=== PATIENT | male | born 1945 | race Caucasian/White ===

== ENCOUNTER 2019-05-10 12:03 | Inpatient (IN) | payer MEDICARE, OTHER ==
[2019-05-10] MEDS ORDERED: METHYLPREDNISOLONE INJ 125 MG/2 ML SDV ONE (12:14)
[2019-05-10] MEDS ORDERED: METHYLPREDNISOLONE INJ 125 MG/2 ML SDV IV ONE (12:15)
[2019-05-10] MEDS ORDERED: IPRATROPIUM/ALBUTEROL 0.5-2.5 MG/3 ML AMPUL NEB SCH (12:15)
--- NOTE | 2019-05-10 12:18 | ER Document Report ---
ED Medical Screen (RME) - General Chief Complaint: Shortness Of Breath Stated Complaint: SHORT OF BREATH Time Seen by Provider: 05/10/19 12:11 Mode of Arrival: Wheelchair Information source: Patient Notes: 73-year-old male presents to ED for shortness of breath unable to get his breath. He states his been since last night his states is been a lot longer than that. He does smoke more than a pack a day. Patient is very short of breath with sats in the 70s and 80s we did get it up to 82 on 2 L when we moved him to the bed 3 we did get up to 92. I have started labs x-rays treatments steroids and informed Dr. Mantilla the patient needed to be seen promptly. I have greeted and performed a rapid initial assessment of this patient. A comprehensive ED assessment and evaluation of the patient, analysis of test results and completion of medical decision making process will be conducted by an additional ED providers. Dictation of this chart was performed using voice recognition software; therefore, there may be some unintended grammatical errors. TRAVEL OUTSIDE OF THE [place] IN LAST 30 DAYS: No - Related Data Allergies/Adverse Reactions: No Known Allergies Allergy (Verified 05/10/19 12:05)
--- NOTE | 2019-05-10 12:33 | ER Document Report ---
ED Respiratory Problem - General Chief Complaint: Shortness Of Breath Stated Complaint: SHORT OF BREATH Time Seen by Provider: 05/10/19 12:11 Mode of Arrival: Wheelchair Information source: Patient, Relative TRAVEL OUTSIDE OF THE [place] IN LAST 30 DAYS: No - HPI Patient complains to provider of: COPD, Short of breath - pt. with h/o COPD [place] continues to smoke with onset of SOB last night with exacerbation this am. - Related Data Allergies/Adverse Reactions: No Known Allergies Allergy (Verified 05/10/19 12:05) Past Medical History - General Information source: Relative - Social History Smoking Status: Current Every Day Smoker Cigarette use (# per day): Yes Chew tobacco use (# tins/day): No Smoking Education Provided: Yes Family History: None Review of Systems - Review of Systems Constitutional: No symptoms reported EENT: No symptoms reported Cardiovascular: No symptoms reported Respiratory: See HPI, Short of breath Gastrointestinal: No symptoms reported Musculoskeletal: No symptoms reported Neurological/Psychological: No symptoms reported -: Yes All other systems reviewed and negative Physical Exam - Vital signs Vitals: Temp Pulse Resp BP 98.8 F 109 H 29 H 130/79 H 05/10/19 12:23 05/10/19 12:23 05/10/19 12:23 05/10/19 12:23 - General General appearance: Alert In distress: Moderate - HEENT Mucous membranes: Normal Pharynx: Normal Neck: Normal - Respiratory Respiratory status: Respiratory distress - moderate Chest status: Nontender Breath sounds: Decreased air movement, Wheezing - bilateral end-expiratory wheezes audible - Cardiovascular Rhythm: Regular Heart sounds: Normal auscultation Murmur: No - Extremities General upper extremity: Normal inspection, Normal strength - Neurological Neuro grossly intact: Yes Cognition: Normal Orientation: AAOx4 Course - Re-evaluation Re-evalutation: 05/10/19 15:32 Pt is breathing better after duonebs, lasix and steroids -- I will call the hospitalist for admission. - Vital Signs Vital signs: Temp Pulse Resp BP Pulse Ox 98.8 F 109 H 19 130/79 H 94 05/10/19 12:23 05/10/19 12:23 05/10/19 13:20 05/10/19 12:23 05/10/19 13:20 - Laboratory Result Diagrams: 05/10/19 12:15 05/10/19 12:15 Laboratory results interpreted by me: 05/10/19 05/10/19 05/10/19 12:15 12:15 12:15 WBC 13.7 H RDW 14.8 H Seg Neuts % (Manual) 86 H Lymphocytes % (Manual) 4 L Abs Neuts (Manual) 11.8 H Absolute Eos (Manual) 0.7 H Carbonic Acid ABG pH ABG pCO2 ABG pO2 ABG HCO3 ABG Total CO2 ABG O2 Saturation Potassium 5.6 H Chloride 96 L Carbon Dioxide 39 H BUN 24 H Glucose 178 H NT-Pro-B Natriuret Pep 3250 H Lipase 20.0 L 05/10/19 12:42 WBC RDW Seg Neuts % (Manual) Lymphocytes % (Manual) Abs Neuts (Manual) Absolute Eos (Manual) Carbonic Acid 2.34 H ABG pH 7.31 L ABG pCO2 77.9 H* ABG pO2 61.6 L ABG HCO3 38.3 H ABG Total CO2 40.7 H ABG O2 Saturation 88.3 L Potassium Chloride Carbon Dioxide BUN Glucose NT-Pro-B Natriuret Pep Lipase - Diagnostic Test Radiology reviewed: Reports reviewed - ?CHF - EKG Interpretation by Me EKG shows normal: Sinus rhythm Rate: Normal Rhythm: NSR - nsr without acute change Critical Care Note - Critical Care Note Total time excluding time spent on procedures (mins): 30 Discharge - Discharge Clinical Impression: COPD exacerbation CHF (congestive heart failure) Qualifiers: Heart failure type: unspecified Heart failure chronicity: unspecified Qualified Code(s): I50.9 - Heart failure, unspecified Condition: Stable Disposition: ADMITTED OBSERVATION Admitting Provider: Mariposa (Hospitalist) Unit Admitted: [facility]
[2019-05-10 12:40] LABS: PROTHROMBIN TIME 14.2 SEC (11.4-15.4)
[2019-05-10 12:41] LABS: PARTIAL THROMBOPLASTIN TIME 32.9 SEC (23.5-35.8)
[2019-05-10 12:56] LABS: ALANINE AMINOTRANSFERASE 42 U/L (21-72); ALBUMIN 3.6 g/dL (3.5-5.0); ALKALINE PHOSPHATASE 122 U/L (38-126); ASPARTATE AMINO TRANSFERASE 31 U/L (17-59); BILIRUBIN,DIRECT 0.4 mg/dL (0.0-0.4); BILIRUBIN,TOTAL 0.6 mg/dL (0.2-1.3); BLOOD UREA NITROGEN 24 mg/dL (7-20); CALCIUM 8.8 mg/dL (8.4-10.2); CHLORIDE 96 mmol/L (98-107); CREATINE KINASE 71 U/L (55-170); GLUCOSE 178 mg/dL (75-110); POTASSIUM 5.6 mmol/L (3.6-5.0); TOTAL PROTEIN 6.6 g/dL (6.3-8.2)
--- NOTE | 2019-05-10 12:57 | RADIOLOGY REPORT (SQ) ---
EXAM DESCRIPTION: CHEST SINGLE VIEW COMPLETED DATE/TIME: 05/10/2019 12:28 pm REASON FOR STUDY: #1 SYNCOPE COMPARISON: None. EXAM PARAMETERS: NUMBER OF VIEWS: One view. TECHNIQUE: Single frontal radiographic view of the chest acquired. RADIATION DOSE: NA LIMITATIONS: None. FINDINGS: LUNGS AND PLEURA: Few Maicol lines are present at both lung bases, question mild fluid ove rload or congestive failure. No pulmonary alveolar edema or dense consolidation worrisome for pneumonia. No pleural effusions or pneumothorax. MEDIASTINUM AND HILAR STRUCTURES: No masses. Contour normal. HEART AND VASCULAR STRUCTURES: Heart normal in size. Normal vasculature. BONES: No acute findings. HARDWARE: None in the chest. OTHER: No other significant finding. IMPRESSION: Few Maicol lines from fluid overload or congestive failure TECHNICAL DOCUMENTATION: JOB ID: [id number] [employer]- All Rights Reserved Reading location - IP/workstation name: [email or web address]
[2019-05-10 12:59] LABS: ARTERIAL BLOOD H2CO3 2.34 mmol/L (1.05-1.35); ARTERIAL BLOOD HCO3 38.3 mmol/L (20-24); ARTERIAL BLOOD O2 SATURATION 88.3 % (94-98); ARTERIAL BLOOD PH 7.31 (7.35-7.45); ARTERIAL BLOOD PO2 61.6 mmHg (80-100); ARTERIAL BLOOD TOTAL CO2 40.7 mmol/L (23-27)
[2019-05-10 13:02] LABS: ANION GAP 7 (5-19)
[2019-05-10 13:07] LABS: CARBON DIOXIDE 39 mmol/L (22-30); CREATINE KINASE MB 3.35 ng/mL (<4.55); HEMATOCRIT 43.6 % (37.9-51.0); HEMOGLOBIN 14.3 g/dL (13.5-17.0); MEAN CORPUSCULAR HEMOGLOBIN 31.2 pg (27.0-33.4); MEAN CORPUSCULAR HGB CONC 32.9 g/dL (32.0-36.0); MEAN CORPUSCULAR VOLUME 95 fl (80-97); PLATELET COUNT 450 10^3/uL (150-450); RED CELL DISTRIBUTION WIDTH 14.8 % (11.5-14.0); WHITE BLOOD COUNT 13.7 10^3/uL (4.0-10.5)
[2019-05-10 13:11] LABS: TROPONIN I 0.255 ng/mL
[2019-05-10 13:11] LABS: ARTERIAL BLOOD FIO2 2L; ARTERIAL BLOOD PCO2 77.9 mmHg (35-45)
[2019-05-10 13:13] LABS: ABSOLUTE LYMPHOCYTES# (MANUAL) 0.5 10^3/uL (0.5-4.7); ABSOLUTE MONOCYTES # (MANUAL) 0.7 10^3/uL (0.1-1.4); BASOPHILS % (MANUAL) 0 % (0-2); EOSINOPHILS % (MANUAL) 5 % (0-6); LYMPHOCYTES % (MANUAL) 4 % (13-45); MONOCYTES % (MANUAL) 5 % (3-13); SEGMENTED NEUTROPHILS % (MAN) 86 % (42-78); TOTAL CELLS COUNTED 100
[2019-05-10 13:14] LABS: ANISOCYTOSIS SLIGHT; STOMATOCYTES SLIGHT; TOXIC VACUOLATION PRESENT
[2019-05-10 13:15] LABS: PLATELET CLUMPS PRESENT; PLATELET COMMENT ADEQUATE
[2019-05-10] MEDS ORDERED: FUROSEMIDE INJ/PF 40 MG/4 ML SDV IV ONE (15:20)
--- NOTE | 2019-05-10 17:56 | PDOC H&P ---
History of Present Illness Admission Date/PCP: 05/10/19 15:52 Patient complains of: SOB History of Present Illness: VERONIKA CRABTREE is a 73 year old male who denies significant past medical history but does not see a regular physician who is presenting with worsening shortness of breath and cough. is in the bedside. Patient is a chronic heavy smoker. He was not previously diagnosed with COPD but she says that they have been suspecting COPD as he has been having shortness of breath for the past 8 months and has occasional wheezing. He says that he has been having increasingly productive cough for the past week with whitish sputum. He started developing worsening shortness of breath and fast 45 days. He says that his checked his O2 saturation this morning it was down to 49%. In the ER, patient was noted to be hypoxic in the 70s. He was noted to have significant bilateral wheezing. He was given Solu-Medrol and breathing treatments. His chest x-ray also showed pulmonary congestion. He was also given IV Lasix in the ER. Upon encounter, patient is saturating well on the BiPAP. He says he is breathing is much better. He does have rhonchi and wheezes in both sides. He denies a prior diagnosis of COPD or CHF. Social History Smoking Status: Current Every Day Smoker Family History Family History: None Parental Family History Reviewed: Yes - no premature CAD Children Family History Reviewed: No Sibling(s) Family History Reviewed.: No Medication/Allergy Allergies/Adverse Reactions: No Known Allergies Allergy (Verified 05/10/19 12:05) Review of Systems All systems: reviewed and no additional remarkable complaints except as stated - as mentioned in HPI Physical Exam Vital Signs: Temp Pulse Resp BP Pulse Ox 98.8 F 109 H 19 130/79 H 94 05/10/19 12:23 05/10/19 12:23 05/10/19 13:20 05/10/19 12:23 05/10/19 13:20 Intake & Output 05/09/19 05/10/19 05/11/19 06:59 06:59 06:59 Weight 177 lb 0.499 oz General appearance: PRESENT: no acute distress, well-developed, well-nourished Head exam: PRESENT: atraumatic, normocephalic Eye exam: PRESENT: conjunctiva pink, EOMI, PERRLA. ABSENT: scleral icterus Ear exam: PRESENT: normal external ear exam Mouth exam: PRESENT: moist, tongue midline Neck exam: ABSENT: carotid bruit, JVD, lymphadenopathy, thyromegaly Respiratory exam: PRESENT: rhonchi, wheezes. ABSENT: rales Cardiovascular exam: PRESENT: RRR. ABSENT: diastolic murmur, rubs, systolic murmur Pulses: PRESENT: normal dorsalis pedis pul GI/Abdominal exam: PRESENT: normal bowel sounds, soft. ABSENT: distended, guarding, mass, organolmegaly, rebound, tenderness Rectal exam: PRESENT: deferred Neurological exam: PRESENT: alert, awake, oriented to person, oriented to place, oriented to time, oriented to situation, CN II-XII grossly intact. ABSENT: motor sensory deficit Results Laboratory Results: 05/10/19 12:15 05/10/19 12:15 05/10/19 05/10/19 05/10/19 12:15 12:15 12:15 WBC 13.7 H RBC 4.60 Hgb 14.3 Hct 43.6 MCV 95 MCH 31.2 MCHC 32.9 RDW 14.8 H Plt Count 450 Seg Neutrophils % Not Reportable Lymphocytes % Not Reportable Monocytes % Not Reportable Eosinophils % Not Reportable Basophils % Not Reportable Absolute Neutrophils Not Reportable Absolute Lymphocytes Not Reportable Absolute Monocytes Not Reportable Absolute Eosinophils Not Reportable Absolute Basophils Not Reportable Carbonic Acid HCO3/H2CO3 Ratio ABG pH ABG pCO2 ABG pO2 ABG HCO3 ABG O2 Saturation ABG Base Excess FiO2 Sodium 142.0 Potassium 5.6 H Chloride 96 L Carbon Dioxide 39 H Anion Gap 7 BUN 24 H Creatinine 0.86 Est GFR ( Amer) > 60 Est GFR (Non-Af Amer) > 60 Glucose 178 H Lactic Acid 1.2 Calcium 8.8 Total Bilirubin 0.6 AST 31 ALT 42 Alkaline Phosphatase 122 Total Protein 6.6 Albumin 3.6 Lipase 20.0 L 05/10/19 12:42 WBC RBC Hgb Hct MCV MCH MCHC RDW Plt Count Seg Neutrophils % Lymphocytes % Monocytes % Eosinophils % Basophils % Absolute Neutrophils Absolute Lymphocytes Absolute Monocytes Absolute Eosinophils Absolute Basophils Carbonic Acid 2.34 H HCO3/H2CO3 Ratio 16:1 ABG pH 7.31 L ABG pCO2 77.9 H* ABG pO2 61.6 L ABG HCO3 38.3 H ABG O2 Saturation 88.3 L ABG Base Excess 9.0 FiO2 2L Sodium Potassium Chloride Carbon Dioxide Anion Gap BUN Creatinine Est GFR ( Amer) Est GFR (Non-Af Amer) Glucose Lactic Acid Calcium Total Bilirubin AST ALT Alkaline Phosphatase Total Protein Albumin Lipase 05/10/19 05/10/19 05/10/19 12:15 12:15 12:15 Creatine Kinase 71 CK-MB (CK-2) 3.35 Troponin I 0.255 NT-Pro-B Natriuret Pep 3250 H Impressions: Chest X-Ray 05/10/19 12:11 IMPRESSION: Few Maicol lines from fluid overload or congestive failure Assessment and Plan - Diagnosis (1) Acute respiratory failure with hypoxia and hypercapnia Is this a current diagnosis for this admission?: Yes (2) COPD exacerbation Is this a current diagnosis for this admission?: Yes (3) CHF (congestive heart failure) Qualifiers: Heart failure type: unspecified Heart failure chronicity: unspecified Qualified Code(s): I50.9 - Heart failure, unspecified Is this a current diagnosis for this admission?: Yes - Time Time Spent with patient: 25-34 minutes
--- NOTE | 2019-05-10 18:01 | ADVANCED CARE ---
- Diagnosis (1) Acute respiratory failure with hypoxia and hypercapnia Diagnosis Current: Yes (2) COPD exacerbation Diagnosis Current: Yes (3) CHF (congestive heart failure) Diagnosis Current: Yes Resuscitation Status: Do Not Resuscitate Discussion: Discussed with patient and on bedside. He verbalizes he has an advanced directive and that he is a DNR/DNI. He does not want any chest compressions, defibrillation or mechanical ventilation if the need arises. He says that his , Mary Florian is his surrogate medical decision maker.
--- NOTE | 2019-05-10 19:20 | EKG REPORT ---
SEVERITY:- OTHERWISE NORMAL ECG - SINUS RHYTHM BORDERLINE LEFT AXIS DEVIATION : Confirmed by: Breanne Worthington MD 10-May-2019 19:20:28
[2019-05-10] MEDS: IPRATROPIUM/ALBUTEROL 0.5-2.5 MG/3 ML AMPUL NEB SCH (20:40)
[2019-05-10] MEDS: HEPARIN SOD (PORCINE) 5,000 UNIT/ML 1 ML SYRINGE SUBCUT SCH (22:33)
[2019-05-10] MEDS: METHYLPREDNISOLONE INJ 40 MG/1 ML SDV IV SCH (22:35)
[2019-05-11] MEDS: IPRATROPIUM/ALBUTEROL 0.5-2.5 MG/3 ML AMPUL NEB SCH ×6 (00:04→20:26)
[2019-05-11] MEDS: METHYLPREDNISOLONE INJ 40 MG/1 ML SDV IV SCH ×3 (05:14→21:25)
[2019-05-11] MEDS: HEPARIN SOD (PORCINE) 5,000 UNIT/ML 1 ML SYRINGE SUBCUT SCH ×3 (05:15→21:25)
[2019-05-11] MEDS: AZITHROMYCIN 250 MG TABLET PO SCH (09:13)
[2019-05-11] MEDS: FUROSEMIDE 20 MG TABLET PO SCH (09:13)
--- NOTE | 2019-05-11 14:41 | PDOC PROGRESS REPORT ---
Subjective Progress Note for:: 05/11/19 Subjective:: Mr. Florian is a very pleasant 73-year-old gentleman who presented to the ER yesterday with a COPD exacerbation and acute congestive heart failure unknown type for which we are awaiting echocardiogram at this time. Patient was found to have a BNP of 3000 yesterday. He was placed on BiPAP and started on Lasix, steroids, nebulizers and antibiotics. At this time patient states his breathing is much better he is in no apparent distress and complaining no concerns at this time. Patient was also hyperkalemic in the ER and I am awaiting a follow-up potassium level at this time. Reason For Visit: COPD EXACERBATION,CHF (CONGESTIVE HEART FAILURE) Physical Exam Vital Signs: Temp Pulse Resp BP Pulse Ox 97.8 F 89 20 124/59 L 95 05/11/19 12:00 05/11/19 14:00 05/11/19 12:46 05/11/19 12:00 05/11/19 12:46 Intake & Output 05/10/19 05/11/19 05/12/19 06:59 06:59 06:59 Intake Total 120 240 Balance 120 240 Weight 75.8 kg General appearance: PRESENT: no acute distress, well-developed, well-nourished Neck exam: ABSENT: carotid bruit, JVD, lymphadenopathy, thyromegaly Respiratory exam: PRESENT: rales Cardiovascular exam: PRESENT: RRR. ABSENT: diastolic murmur, rubs, systolic murmur Pulses: PRESENT: normal dorsalis pedis pul Vascular exam: PRESENT: normal capillary refill GI/Abdominal exam: PRESENT: normal bowel sounds, soft. ABSENT: distended, guarding, mass, organolmegaly, rebound, tenderness Neurological exam: PRESENT: alert, awake, oriented to person, oriented to place, oriented to time, oriented to situation, CN II-XII grossly intact. ABSENT: motor sensory deficit Psychiatric exam: PRESENT: appropriate affect, normal mood. ABSENT: homicidal ideation, suicidal ideation Skin exam: PRESENT: dry, intact, warm. ABSENT: cyanosis, rash Results Laboratory Results: 05/10/19 12:15 05/10/19 12:15 05/10/19 05/10/19 05/10/19 12:15 12:15 12:15 Creatine Kinase 71 CK-MB (CK-2) 3.35 Troponin I 0.255 NT-Pro-B Natriuret Pep 3250 H Impressions: Chest X-Ray 05/10/19 12:11 IMPRESSION: Few Maicol lines from fluid overload or congestive failure Assessment and Plan - Diagnosis (1) Acute respiratory failure with hypoxia and hypercapnia Is this a current diagnosis for this admission?: Yes Plan: Improved. At this time continue BiPAP. Submental oxygen as needed. Will fol low make adjustments based on patient needs. (2) CHF (congestive heart failure) Qualifiers: Heart failure type: unspecified Heart failure chronicity: unspecified Qualified Code(s): I50.9 - Heart failure, unspecified Is this a current diagnosis for this admission?: Yes Plan: Continue current Lasix dosing. Repeat BMP in the a.m. Patient in no distress at this time. (3) COPD exacerbation Is this a current diagnosis for this admission?: Yes Plan: Improved. Continue Solu-Medrol, nebs and antibiotics at this time. Will most likely switch IV antibodies to p.o. in the a.m. (4) Hyperkalemia Is this a current diagnosis for this admission?: Yes Plan: Repeat potassium level now. Treat as appropriate. - Time Time Spent with patient: 15-24 minutes - Inpatient Certification Medical Necessity: Need for Nebulizer Therapy and Monitoring of Response, Risk of Complication if Not Cared For in Hospital
[2019-05-12] MEDS: IPRATROPIUM/ALBUTEROL 0.5-2.5 MG/3 ML AMPUL NEB SCH ×6 (00:14→20:01)
[2019-05-12] MEDS: HEPARIN SOD (PORCINE) 5,000 UNIT/ML 1 ML SYRINGE SUBCUT SCH ×3 (05:46→22:26)
[2019-05-12] MEDS: METHYLPREDNISOLONE INJ 40 MG/1 ML SDV IV SCH (05:46)
[2019-05-12 06:13] LABS: HEMATOCRIT 39.8 % (37.9-51.0); HEMOGLOBIN 13.1 g/dL (13.5-17.0); MEAN CORPUSCULAR HEMOGLOBIN 30.9 pg (27.0-33.4); MEAN CORPUSCULAR HGB CONC 32.8 g/dL (32.0-36.0); MEAN CORPUSCULAR VOLUME 94 fl (80-97); PLATELET COUNT 397 10^3/uL (150-450); RED BLOOD COUNT 4.23 10^6/uL (4.35-5.55); RED CELL DISTRIBUTION WIDTH 14.5 % (11.5-14.0); WHITE BLOOD COUNT 12.9 10^3/uL (4.0-10.5)
[2019-05-12 06:32] LABS: BLOOD UREA NITROGEN 24 mg/dL (7-20); CALCIUM 8.3 mg/dL (8.4-10.2); GLUCOSE 202 mg/dL (75-110); POTASSIUM 5.3 mmol/L (3.6-5.0)
[2019-05-12 06:38] LABS: ANION GAP 5 (5-19); CARBON DIOXIDE 38 mmol/L (22-30); CHLORIDE 96 mmol/L (98-107); SODIUM 139.2 mmol/L (137-145)
[2019-05-12 06:48] LABS: ABSOLUTE LYMPHOCYTES# (MANUAL) 1.3 10^3/uL (0.5-4.7); ABSOLUTE MONOCYTES # (MANUAL) 1.2 10^3/uL (0.1-1.4); BAND NEUTROPHILS % (MANUAL) 4 % (3-5); BASOPHILS % (MANUAL) 0 % (0-2); EOSINOPHILS % (MANUAL) 0 % (0-6); LYMPHOCYTES % (MANUAL) 10 % (13-45); MONOCYTES % (MANUAL) 9 % (3-13); RBC MORPHOLOGY COMMENT NORMO-CYTIC/CHROMIC; SEGMENTED NEUTROPHILS % (MAN) 77 % (42-78); TOTAL CELLS COUNTED 100
[2019-05-12 06:49] LABS: PLATELET COMMENT ADEQUATE
--- NOTE | 2019-05-12 09:37 | PDOC PROGRESS REPORT ---
Subjective Progress Note for:: 05/12/19 Subjective:: Mr. Florian is a pleasant 73-year-old gentleman who presented to ER with acute Reason For Visit: ACUTE RESPIRATORY FAILURE ,POSSIBLE COPD VS CHF Physical Exam Vital Signs: Temp Pulse Resp BP Pulse Ox 97.6 F 84 16 121/68 90 L 05/12/19 03:40 05/12/19 08:08 05/12/19 08:08 05/12/19 03:40 05/12/19 08:08 Intake & Output 05/11/19 05/12/19 05/13/19 06:59 06:59 06:59 Intake Total 120 1787 Output Total 850 Balance 120 937 Weight 75.8 kg 76.3 kg Results Laboratory Results: 05/12/19 05:49 05/12/19 05:49 05/11/19 05/12/19 05/12/19 17:39 05:49 05:49 WBC 12.9 H RBC 4.23 L Hgb 13.1 L Hct 39.8 MCV 94 MCH 30.9 MCHC 32.8 RDW 14.5 H Plt Count 397 Seg Neutrophils % Not Reportable Lymphocytes % Not Reportable Monocytes % Not Reportable Eosinophils % Not Reportable Basophils % Not Reportable Absolute Neutrophils Not Reportable Absolute Lymphocytes Not Reportable Absolute Monocytes Not Reportable Absolute Eosinophils Not Reportable Absolute Basophils Not Reportable Sodium 139.2 Potassium 5.0 5.3 H Chloride 96 L Carbon Dioxide 38 H Anion Gap 5 BUN 24 H Creatinine 0.66 Est GFR ( Amer) > 60 Est GFR (Non-Af Amer) > 60 Glucose 202 H Calcium 8.3 L 05/10/19 05/10/19 05/10/19 12:15 12:15 12:15 Creatine Kinase 71 CK-MB (CK-2) 3.35 Troponin I 0.255 NT-Pro-B Natriuret Pep 3250 H 05/12/19 05:49 Creatine Kinase CK-MB (CK-2) Troponin I NT-Pro-B Natriuret Pep 926 H Impressions: Chest X-Ray 05/10/19 12:11 IMPRESSION: Few Maicol lines from fluid overload or congestive failure Assessment and Plan - Diagnosis (1) Acute respiratory failure with hypoxia and hypercapnia Is this a current diagnosis for this admission?: Yes Plan: Improved. At this time continue BiPAP. Submental oxygen as needed. Will follow make adjustments based on patient needs. 05/12/2019-clinically improved continues to refuse to wear BiPAP. Submental oxygen as needed. Patient did desat this a.m. while shaving without his oxygen to 80%. I suspect this most likely secondary to his acute congestive heart failure of unknown type at this time. Will diurese further and reassess. (2) CHF (congestive heart failure) Qualifiers: Heart failure type: unspecified Heart failure chronicity: unspecified Qualified Code(s): I50.9 - Heart failure, unspecified Is this a current diagnosis for this admission?: Yes Plan: Continue current Lasix dosing. Repeat BMP in the a.m. Patient in no distress a t this time. 05/12/2019-hold a.m. p.o. Lasix give Lasix 40 mill grams IV x1. Will reassess in the a.m. (3) COPD exacerbation Is this a current diagnosis for this admission?: Yes Plan: Improved. Continue Solu-Medrol, nebs and antibiotics at this time. Will most likely switch IV antibodies to p.o. in the a.m. 05/12/2019-improved. Wheezing is much improved at this time. Will switch IV Solu-Medrol to p.o. prednisone 60 mg daily at this time. (4) Hyperkalemia Is this a current diagnosis for this admission?: Yes Plan: Repeat potassium level now. Treat as appropriate. 05/12/2019-yesterday repeat potassium level was 5.0. Today potassium level 5.3. IV Lasix will be given as a one-time dose repeat BMP in the a.m. - Time Time Spent with patient: 15-24 minutes - Inpatient Certification Medical Necessity: Other - Continues to require O2 therapy as O2 sats drop to 80% while shaving without oxygen. Patient also requiring IV Lasix for diuresis.
[2019-05-12] MEDS: PREDNISONE 20 MG TABLET PO SCH (09:41)
[2019-05-12] MEDS: AZITHROMYCIN 250 MG TABLET PO SCH (09:42)
[2019-05-12] MEDS ORDERED: FUROSEMIDE INJ/PF 40 MG/4 ML SDV IV ONE (10:00)
--- NOTE | 2019-05-12 10:18 | Progress Note Acknowledgement ---
Progress Note Acknowledgement Progess Note Acknowledgement: I, the undersigned member of the medical staff with appropriate privileges and with supervisory authority over Hrio Gonzalez, a [facility] practice allied health professional, acknowledge that I have reviewed the progress notes entered on this patient, and in my professional judgment believe that the assessment made and/or any care evidenced was appropriate
--- NOTE | 2019-05-12 22:37 | XCELERA REPORT ---
[address] [address] Transthoracic Echocardiogram Report Name: VERONIKA CRABTREE Age: 73 yrs Gender: Male : 1945 Patient Status: Inpatient Patient Location: [address] [place] [address] Study Date: 05/11/2019 06:20 PM Height: 74 in Weight: 177 lb BSA: 2.1 m2 Procedure: A two-dimensional transthoracic echocardiogram with color flow and Doppler was performed. The study was technically difficult with many images being suboptimal in quality. Study Quality: Technically suboptimal. Reason For Study: CHF / elevated BNP History: CHF / elevated BNP. Ordering Physician: MATHEUS LOREDO Performed By: Rosalba Jimenez Interpretation Summary The left ventricle is normal in size. There is normal left ventricular wall thickness. LV EF is 60% Left ventricular systolic function is normal. Doppler measurements suggest impaired left ventricular relaxation, which is associated with grade I/IV or mild diastolic dysfunction No defenite regional wall motion abnormality. There is no thrombus. No ASD,VSD , or PFO seen. The right ventricle is grossly normal size. The right atrium is normal. Right atrium not well visualized secondary to technical limitations The left atrial size is normal. There is no evidence of mitral valve prolapse. There is no vegetation seen on the mitral valve. There is no mitral valve stenosis. There is a trace amount of mitral regurgitation There is no aortic valvular vegetation. There is no aortic valve stenosis There is no LVOT obstruction. No aortic regurgitation is present. There is no tricuspid stenosis. There is a trace amount of tricuspid regurgitation Right ventricular systolic pressure is normal. RVSP is 18 to 23 mm of Hg , with RA mean of 5 to 10. There is no pulmonic valvular stenosis. There is no pulmonic valvular regurgitation. The aortic root is not well visualized. The inferior vena cava appeared normal and decreased > 50% with respiration (RAP 5-10 mmHg) There is no pericardial effusion. MMode/2D Measurements & Calculations RVDd: 2.7 cm LVIDd: 4.5 cm FS: 24.4 % Ao root diam: 3.1 cm IVSd: 0.90 cm LVIDs: 3.4 cm EDV(Teich): Ao root area: LVPWd: 0.90 cm 93.7 ml 7.5 cm2 ESV(Teich): LA dimension: 3.1 cm 48.2 ml EF(Teich): 48.6 % LVLd ap4: 7.6 cm SV(MOD-sp4): EDV(MOD-sp4): 63.0 ml 99.0 ml LVLs ap4: 7.0 cm ESV(MOD-sp4): 36.0 ml EF(MOD-sp4): 63.6 % Doppler Measurements & Calculations MV E max chirag: MV P1/2t max chirag: Ao V2 max: LV V1 max P.7 cm/sec 98.9 cm/sec 136.8 cm/sec 4.1 mmHg MV A max chirag: MV P1/2t: 43.3 msec Ao max P.5 mmHgLV V1 max: 109.5 cm/sec MVA(P1/2t): 5.1 cm2 101.7 cm/sec MV E/A: 0.75 MV dec slope: 668.6 cm/sec2 MV dec time: 0.20 sec PA V2 max: TR max chirag: MV P1/2t-pr_phl: 117.3 cm/sec 179.0 cm/sec 43.3 msec PA max P.5 mmHgTR max P.8 mmHg Left Ventricle The left ventricle is normal in size. There is normal left ventricular wall thickness. LV EF is 60%. Left ventricular systolic function is normal. Doppler measurements suggest impaired left ventricular relaxation, which is associated with grade I/IV or mild diastolic dysfunction. No defenite regional wall motion abnormality. There is no thrombus. No ASD,VSD , or PFO seen. Right Ventricle The right ventricle is grossly normal size. The right ventricle is not well visualized secondary to technical limitations. Atria The right atrium is normal. Right atrium not well visualized secondary to technical limitations. The left atrial size is normal. Mitral Valve There is no evidence of mitral valve prolapse. There is no vegetation seen on the mitral valve. There is no mitral valve stenosis. There is a trace amount of mitral regurgitation. Aortic Valve There is no aortic valvular vegetation. There is no aortic valve stenosis. There is no LVOT obstruction. No aortic regurgitation is present. Tricuspid Valve There is no tricuspid stenosis. There is a trace amount of tricuspid regurgitation. Right ventricular systolic pressure is normal. RVSP is 18 to 23 mm of Hg , with RA mean of 5 to 10. Pulmonic Valve There is no pulmonic valvular stenosis. There is no pulmonic valvular regurgitation. Great Vessels The aortic root is not well visualized. The inferior vena cava appeared normal and decreased > 50% with respiration (RAP 5-10 mmHg). Effusions There is no pericardial effusion. : MATHEUS LOREDO > Breanne Worthington
[2019-05-13] MEDS: IPRATROPIUM/ALBUTEROL 0.5-2.5 MG/3 ML AMPUL NEB SCH ×6 (00:23→20:16)
[2019-05-13] MEDS: HEPARIN SOD (PORCINE) 5,000 UNIT/ML 1 ML SYRINGE SUBCUT SCH ×3 (05:24→21:03)
[2019-05-13 06:48] LABS: BLOOD UREA NITROGEN 26 mg/dL (7-20); CALCIUM 8.5 mg/dL (8.4-10.2); GLUCOSE 117 mg/dL (75-110)
[2019-05-13 07:03] LABS: CHLORIDE 96 mmol/L (98-107); SODIUM 141.2 mmol/L (137-145)
[2019-05-13 07:09] LABS: ANION GAP 2 (5-19)
[2019-05-13 07:11] LABS: CARBON DIOXIDE 43 mmol/L (22-30)
--- NOTE | 2019-05-13 08:20 | PDOC PROGRESS REPORT ---
Subjective Progress Note for:: 05/13/19 Subjective:: 05/13/2019-Mr. Anival barrios 73-year-old gentleman presented to the ER with COPD exacerbation and acute right-sided congestive heart failure. Patient is been treated with IV Lasix, steroids, antibiotics and nebulizers. Patient is sitting on side of bed at this time eating breakfast in no acute distress. We did perform a 6-minute walk with patient sats dropping down into the high 70s. Reason For Visit: ACUTE RESPIRATORY FAILURE ,POSSIBLE COPD VS CHF Physical Exam Vital Signs: Temp Pulse Resp BP Pulse Ox 97.5 F 82 18 126/82 H 99 05/13/19 07:35 05/13/19 07:35 05/13/19 07:35 05/13/19 07:35 05/13/19 07:35 Intake & Output 05/12/19 05/13/19 05/14/19 06:59 06:59 06:59 Intake Total 1787 2040 Output Total 850 4775 Balance 937 -2735 Weight 76.3 kg 79 kg General appearance: PRESENT: no acute distress, well-developed, well-nourished Neck exam: ABSENT: carotid bruit, JVD, lymphadenopathy, thyromegaly Respiratory exam: PRESENT: accessory muscle use, crackles Cardiovascular exam: PRESENT: RRR. ABSENT: diastolic murmur, rubs, systolic murmur Pulses: PRESENT: normal dorsalis pedis pul GI/Abdominal exam: PRESENT: normal bowel sounds, soft. ABSENT: distended, guarding, mass, organolmegaly, rebound, tenderness Extremities exam: PRESENT: full ROM. ABSENT: calf tenderness, clubbing, pedal edema Neurological exam: PRESENT: alert, awake, oriented to person, oriented to place, oriented to time, oriented to situation, CN II-XII grossly intact. ABSENT: motor sensory deficit Psychiatric exam: PRESENT: appropriate affect, normal mood. ABSENT: homicidal ideation, suicidal ideation Skin exam: PRESENT: dry, intact, warm. ABSENT: cyanosis, rash Results Laboratory Results: 05/12/19 05:49 05/13/19 06:12 05/13/19 06:12 Sodium 141.2 Potassium 5.0 Chloride 96 L Carbon Dioxide 43 H* Anion Gap 2 L BUN 26 H Creatinine 0.76 Est GFR ( Amer) > 60 Est GFR (Non-Af Amer) > 60 Glucose 117 H Calcium 8.5 05/10/19 05/10/19 05/10/19 12:15 12:15 12:15 Creatine Kinase 71 CK-MB (CK-2) 3.35 Troponin I 0.255 NT-Pro-B Natriuret Pep 3250 H 05/12/19 05:49 Creatine Kinase CK-MB (CK-2) Troponin I NT-Pro-B Natriuret Pep 926 H Impressions: Chest X-Ray 05/10/19 12:11 IMPRESSION: Few Maicol lines from fluid overload or congestive failure Assessment and Plan - Diagnosis (1) Acute respiratory failure with hypoxia and hypercapnia Is this a current diagnosis for this admission?: Yes Plan: Improved. At this time continue BiPAP. Submental oxygen as needed. Will follow make adjustments based on patient needs. 05/12/2019-clinically improved continues to refuse to wear BiPAP. Submental o xygen as needed. Patient did desat this a.m. while shaving without his oxygen to 80%. I suspect this most likely secondary to his acute congestive heart failure of unknown type at this time. Will diurese further and reassess. [id number] walk showed desaturations down into the high 70s. Patient did bounce back relatively quickly with oxygen reapplied. Patient did wear BiPAP some last night but not all night long. I suspect most of this is from acute congestive heart failure. Patient does sound better than he did yesterday I will read dose him with 40 mg IV Lasix today for further diuresis and continue other treatment for his COPD exacerbation. (2) CHF (congestive heart failure) Qualifiers: Heart failure type: right-sided Heart failure chronicity: acute Qualified Code(s): I50.811 - Acute right heart failure Is this a current diagnosis for this admission?: Yes Plan: Continue current Lasix dosing. Repeat BMP in the a.m. Patient in no distress at this time. 05/12/2019-hold a.m. p.o. Lasix give Lasix 40 mill grams IV x1. Will reassess in the a.m. 05/13/2019-improved. Patient still dropping his oxygen saturations while mobilizing. I will repeat Lasix 40 mg IV x1 this morning as he has had no bump in his creatinine at this time. I will reassess him in a.m. (3) COPD exacerbation Is this a current diagnosis for this admission?: Yes Plan: Improved. Continue Solu-Medrol, nebs and antibiotics at this time. Will most likely switch IV antibodies to p.o. in the a.m. 05/12/2019-improved. Wheezing is much improved at this time. Will switch IV Solu-Medrol to p.o. prednisone 60 mg daily at this time. 05/13/2019-wheezing continues to improve although I am going to continue prednisone 60 milligrams p.o. daily at this time nebulizers. Suspect patient will need these when he is discharged home also may require home oxygen with follow-up with pulmonology and primary care practitioner. (4) Hyperkalemia Is this a current diagnosis for this admission?: Yes Plan: Repeat potassium level now. Treat as appropriate. 05/12/2019-yesterday repeat potassium level was 5.0. Today potassium level 5.3. IV Lasix will be given as a one-time dose repeat BMP in the a.m. 05/13/2019-potassium today 5.0. Repeating Lasix IV. Repeat BMP in a.m. - Time Time Spent with patient: 15-24 minutes - Inpatient Certification Medical Necessity: Other - Patient continues to desaturate while ambulating. Requiring IV Lasix for diuresis and BiPAP at night. Constant monitoring for any respiratory compromise.
[2019-05-13] MEDS ORDERED: FUROSEMIDE INJ/PF 40 MG/4 ML SDV IV ONE (08:30)
[2019-05-13] MEDS: PREDNISONE 20 MG TABLET PO SCH (09:30)
[2019-05-13] MEDS: AZITHROMYCIN 250 MG TABLET PO SCH (09:31)
[2019-05-13] MEDS: FUROSEMIDE 20 MG TABLET PO SCH (17:29)
[2019-05-14] MEDS: IPRATROPIUM/ALBUTEROL 0.5-2.5 MG/3 ML AMPUL NEB SCH ×4 (00:21→12:39)
[2019-05-14] MEDS: HEPARIN SOD (PORCINE) 5,000 UNIT/ML 1 ML SYRINGE SUBCUT SCH (06:09)
[2019-05-14 07:14] LABS: ANION GAP 5 (5-19); BLOOD UREA NITROGEN 24 mg/dL (7-20); CALCIUM 8.8 mg/dL (8.4-10.2); CHLORIDE 94 mmol/L (98-107); GLUCOSE 133 mg/dL (75-110); SODIUM 139.1 mmol/L (137-145)
[2019-05-14 07:29] LABS: CARBON DIOXIDE 40 mmol/L (22-30)
[2019-05-14] MEDS: PREDNISONE 20 MG TABLET PO SCH (09:24)
[2019-05-14] MEDS: AZITHROMYCIN 250 MG TABLET PO SCH (09:25)
[2019-05-14] MEDS: FUROSEMIDE 20 MG TABLET PO SCH (09:25)
--- NOTE | 2019-05-14 10:17 | PDOC DISCHARGE SUMMARY ---
General - Admit/Disc Date/PCP Admission Date/Primary Care Provider: 05/10/19 15:52 Discharge Date: 05/14/19 - Discharge Diagnosis (1) Acute respiratory failure with hypoxia and hypercapnia Is this a current diagnosis for this admission?: Yes (2) CHF (congestive heart failure) Is this a current diagnosis for this admission?: Yes (3) COPD exacerbation Is this a current diagnosis for this admission?: Yes (4) Hyperkalemia Is this a current diagnosis for this admission?: Yes - Additional Information Resuscitation Status: Do Not Resuscitate Discharge Diet: Cardiac Discharge Activity: Activity As Tolerated, Balance Activity w/Rest, Weigh Daily Prescriptions: Albuterol Sulfate [Albuterol Sulfate Hfa] 8.5 gm IH Q4HP PRN 30 Days #1 hfa.[email or web address] PRN Reason: Furosemide [Lasix 20 mg Tablet] 20 mg PO DAILY #30 tablet Ipratropium/Albuterol Sulfate [Duoneb 3 ml Ampul] 3 ml NEB RTQ4 #90 vial.neb Prednisone [Deltasone 20 mg Tablet] 10 mg PO DAILY 6 Days #21 tablet Home Medications: Aspirin [Nic Chewable Aspirin] 1 tab PO PRN PRN 05/11/19 Albuterol Sulfate [Albuterol Sulfate Hfa] 8.5 gm IH Q4HP PRN 30 Days #1 hfa.aer.ad 05/14/19 Furosemide [Lasix 20 mg Tablet] 20 mg PO DAILY #30 tablet 05/14/19 Ipratropium/Albuterol Sulfate [Duoneb 3 ml Ampul] 3 ml NEB RTQ4 #90 vial.neb 05/14/19 Prednisone [Deltasone 20 mg Tablet] 10 mg PO DAILY 6 Days #21 tablet 05/14/19 History of Present Illness Patient complains of: None History of Present Illness: VERONIKA CRABTREE is a 73 year old male who presented to the ER with shortness of breath. Patient denied any medical history at that time although he does have a history of chronic heavy smoking. Patient was found to have pulmonary congestion on chest x-ray as well as a COPD exacerbation. Patient was diuresed throughout his stay and improved sufficiently with his pulmonary edema. Patient also showed improvement with his COPD with use of steroids and nebulizer treatments. Patient still desats with activity but does well with 2 L nasal cannula. At this time patient is improved sufficiently return home he will follow-up with Dr. Atkinson and we will have him set up to see pulmonology. I will send patient home on duo nebs q. every 12, albuterol puffer 2 puffs every 4 hours as needed, prednisone Dosepak, Coreg 3.25 mill grams p.o. twice daily, lisinopril 2.5 mg tablet 1/2 tablet daily and a baby aspirin daily. Patient has been advised to return back to the ER if he had further complaints or exacerbations. Hospital Course Hospital Course: VERONIKA CRABTREE is a 73 year old male who presented to the ER with shortness of breath. Patient denied any medical history at that time although he does have a history of chronic heavy smoking. Patient was found to have pulmonary congestion on chest x-ray as well as a COPD exacerbation. Patient was diuresed throughout his stay and improved sufficiently with his pulmonary edema. Patient also showed improvement with his COPD with use of steroids and nebulizer treatments. Patient still desats with activity but does well with 2 L nasal cannula. At this time patient is improved sufficiently return home he will follow-up with Dr. Atkinson and we will have him set up to see pulmonology. I will send patient home on duo nebs q. every 12, albuterol puffer 2 puffs every 4 hours as needed, prednisone Dosepak, Coreg 3.25 mill grams p.o. twice daily, lisinopril 2.5 mg tablet 1/2 tablet daily and a baby aspirin daily. Patient has been advised to return back to the ER if he had further complaints or exacerbations. Patient requires home O2 for chronic COPD. Physical Exam Vital Signs: Temp Pulse Resp BP Pulse Ox 98.0 F 72 18 120/66 96 05/14/19 07:31 05/14/19 07:32 05/14/19 07:32 05/14/19 07:31 05/14/19 07:32 Intake & Output 05/13/19 05/14/19 05/15/19 06:59 06:59 06:59 Intake Total 7790 360 Output Total 7262 390 Balance -0667 -390 Weight 79 kg 78 kg General appearance: PRESENT: no acute distress, well-developed, well-nourished Head exam: PRESENT: atraumatic, normocephalic Eye exam: PRESENT: conjunctiva pink, EOMI, PERRLA. ABSENT: scleral icterus Ear exam: PRESENT: normal external ear exam Mouth exam: PRESENT: moist, tongue midline Teeth exam: PRESENT: poor dentation Neck exam: ABSENT: carotid bruit, JVD, lymphadenopathy, thyromegaly Respiratory exam: PRESENT: wheezes. ABSENT: rales, rhonchi Cardiovascular exam: PRESENT: RRR. ABSENT: diastolic murmur, rubs, systolic murmur Pulses: PRESENT: normal dorsalis pedis pul Vascular exam: PRESENT: normal capillary refill GI/Abdominal exam: PRESENT: normal bowel sounds, soft. ABSENT: distended, guarding, mass, organolmegaly, rebound, tenderness Rectal exam: PRESENT: deferred Extremities exam: PRESENT: full ROM. ABSENT: calf tenderness, clubbing, pedal edema Neurological exam: PRESENT: alert, awake, oriented to person, oriented to place, oriented to time, oriented to situation, CN II-XII grossly intact. ABSENT: motor sensory deficit Psychiatric exam: PRESENT: appropriate affect, normal mood. ABSENT: homicidal ideation, suicidal ideation Skin exam: PRESENT: dry, intact, warm. ABSENT: cyanosis, rash Results Laboratory Results: 05/12/19 05:49 05/14/19 05:51 05/14/19 05:51 Sodium 139.1 Potassium 5.0 Chloride 94 L Carbon Dioxide 40 H* Anion Gap 5 BUN 24 H Creatinine 0.75 Est GFR ( Amer) > 60 Est GFR (Non-Af Amer) > 60 Glucose 133 H Calcium 8.8 05/10/19 05/10/19 05/10/19 12:15 12:15 12:15 Creatine Kinase 71 CK-MB (CK-2) 3.35 Troponin I 0.255 NT-Pro-B Natriuret Pep 3250 H 05/12/19 05:49 Creatine Kinase CK-MB (CK-2) Troponin I NT-Pro-B Natriuret Pep 926 H Impressions: Chest X-Ray 05/10/19 12:11 IMPRESSION: Few Maicol lines from fluid overload or congestive failure Qualifiers - * PATIENT BEING DISCHARGED WITH ANY OF THE FOLLOWING DIAGNOSIS: No Acute Heart Failure - Is this a Heart Failure Patient?: Yes Documentation of LVEF assessment?: Yes LVEF < 40%?: No- if no continue to question #3 3. Anticoagulant therapy for permanect/persistent/paraoxysmal Afib or Aflutter: N/A Follow-up Appointment scheduled within 7 days?: Yes Plan Discharge Plan: 1 follow-up with Dr. Atkinson 2 follow-up with pulmonology
[2019-05-14 11:08] VITALS: BP 130/79
== END 2019-05-14 13:11 | disposition home health service (06) | DRG 189 ==
LOC: ER 12:03 → OBSVTOIN 15:52 → EH 15:52 → 3S 22:53
PROVIDERS: ADMIT Internal Medicine; ATTEND Internal Medicine
PROC: 5A09457 Assistance with Respiratory Ventilation, 24-96 Consecutive Hours, Continuous Positive Airway Pressure (ICD-10-PCS; principal; 2019-05-10)
DX: J96.01 Acute respiratory failure with hypoxia (principal); J44.1 Chronic obstructive pulmonary disease with (acute) exacerbation; J96.02 Acute respiratory failure with hypercapnia; E87.5 Hyperkalemia; I50.811 Acute right heart failure; F17.210 Nicotine dependence, cigarettes, uncomplicated; Z79.899 Other long term (current) drug therapy; Z99.81 Dependence on supplemental oxygen
CPT/HCPCS: 36415; 71045; 80048; 80053; 82550; 82553; 82803; 83605; 83690; 83880; 84132; 84484; 85025; 85610; 85730; 87040; 93005; 93010; 93306; 94640; 94660; 96374; 96375; 96376; 99285; G0378; J1644; J1940; J2920; J2930; J3490; J7512; J7620

== ENCOUNTER 2019-05-26 11:24 | Emergency (ER) | payer MEDICARE ==
--- NOTE | 2019-05-26 11:38 | ER Document Report ---
ED Medical Screen (RME) - General Chief Complaint: Urinary Retention Stated Complaint: URINARY ISSUE Time Seen by Provider: 05/26/19 11:36 Primary Care Provider: JONATHAN REED MD [Primary Care Provider] - Follow up as needed Mode of Arrival: Wheelchair Information source: Patient Notes: 73-year-old male presents to ED for urinary retention. He states he had a catheter put in last week with a leg bag. He states he emptied his leg bag at 5 AM and has had no urine since then. He has not a lot of pain due to the retention of the urine. Patient is alert and oriented but is in pain. He states he has a history of COPD and urinary retention. He has a urology appointment tomorrow. I have greeted and performed a rapid initial assessment of this patient. A comprehensive ED assessment and evaluation of the patient, analysis of test results and completion of medical decision making process will be conducted by an additional ED providers. Dictation of this chart was performed using voice recognition software; therefore, there may be some unintended grammatical errors. TRAVEL OUTSIDE OF THE [place] IN LAST 30 DAYS: No - Related Data Allergies/Adverse Reactions: No Known Allergies Allergy (Verified 05/26/19 11:29) Past Medical History Pulmonary Medical History: Reports: Hx COPD Renal/ Medical History: Denies: Hx Peritoneal Dialysis Physical Exam - Vital signs Vitals: Temp Pulse Resp BP Pulse Ox 98.1 F 102 H 28 H 154/103 H 96 05/26/19 11:31 05/26/19 11:31 05/26/19 11:31 05/26/19 11:31 05/26/19 11:31 Course - Vital Signs Vital signs: Temp Pulse Resp BP Pulse Ox 98.1 F 102 H 28 H 154/103 H 96 05/26/19 11:31 05/26/19 11:31 05/26/19 11:31 05/26/19 11:31 05/26/19 11:31 Doctor's Discharge - Discharge Referrals: JONATHAN REED MD [Primary Care Provider] - Follow up as needed
--- NOTE | 2019-05-26 13:10 | ER Document Report ---
ED GI/ - General Chief Complaint: Urinary Retention Stated Complaint: URINARY ISSUE Time Seen by Provider: 05/26/19 11:36 Primary Care Provider: JONATHAN REED MD [Primary Care Provider] - Follow up as needed Mode of Arrival: Wheelchair Information source: Patient Notes: HPI: 73-year-old male with urinary retention starting Friday. No history of prostatic hypertrophy. A Ho was placed on Friday. Has urology appointment tomorrow. Comes in today because he had some urinary retention. He also had some blood clots. No fevers or vomiting. Some suprapubic abdominal discomfort. ROS: See HPI All other review of systems reviewed and otherwise negative Reviewed vital signs and nursing note as charted by RN. PHYSICAL EXAM: CONSTITUTIONAL: Alert and oriented and responds appropriately to questions. Well-appearing; well-nourished HEAD: Normocephalic; atraumatic EYES: Conjunctivae is not pale CARD: Regular rate and rhythm; no murmurs; symmetric distal pulses RESP: Normal chest excursion without splinting or tachypnea; breath sounds clear and equal bilaterally ABD/GI: Normal bowel sounds; non-distended; soft, nontender to deep palpation currently of all 4 quadrants of the abdomen GI/: Patient has no penile Or scrotal testicular pain or swelling. No suprapubic tenderness. Urine is blood-tinged at this time BACK: The back appears normal and is non-tender to palpation EXT: Normal ROM in all joints; non-tender to palpation; no edema SKIN: No acute lesions noted NEURO: CN 2-12 intact; 5/5 bilateral upper and lower extremity strength with sensation intact to light touch PSYCH: The patient's mood and manner are appropriate. Grooming and personal hygiene are appropriate. TRAVEL OUTSIDE OF THE [place] IN LAST 30 DAYS: No - Related Data Allergies/Adverse Reactions: No Known Allergies Allergy (Verified 05/26/19 11:29) Past Medical History - General Information source: Patient - Social History Smoking Status: Former Smoker Chew tobacco use (# tins/day): No Frequency of alcohol use: None Drug Abuse: None Family History: None Patient has suicidal ideation: No Patient has homicidal ideation: No Pulmonary Medical History: Reports: Hx COPD Renal/ Medical History: Denies: Hx Peritoneal Dialysis Physical Exam - Vital signs Vitals: Temp Pulse Resp BP Pulse Ox 98.1 F 102 H 28 H 154/103 H 96 05/26/19 11:31 05/26/19 11:31 05/26/19 11:31 05/26/19 11:31 05/26/19 11:31 Course - Re-evaluation Re-evalutation: 05/26/19 13:09 Given the history and physical examination, the patient's Ho catheter was irrigated. The clot is dislodged and the patient has much resolution of his pain. We will order CBC and chemistry to assess the patient's hemoglobin level and creatinine levels. We will also continuously irrigate the Ho to make sure it clears. 05/26/19 14:36 Hemoglobin and creatinine as recorded. 05/26/19 16:04 Three-way oral a three-way irrigating Ho catheter was attempted to be placed and was unsuccessful on multiple attempts. Replacing the 14 [place] coud was successful after the third attempt. They are attempting to hand irrigate. 05/26/19 17:15 With hand irrigation, the urine is starting to clear. Patient has absolutely no pain. Patient has an appointment with urologist tomorrow. The instructor hairspring is at bedside and we are teaching some very gentle irrigation to help dislodge any clots. Strict return precautions have been explained. 05/26/19 17:[address] directly [address] Michelle the urologist. He is asked that we send a urine culture and provide a gram of Rocephin. He will see the patient in the office. He does not request an ultrasound. This has been performed. - Vital Signs Vital signs: Temp Pulse Resp BP Pulse Ox 98.1 F 102 H 28 H 154/103 H 96 05/26/19 11:31 05/26/19 11:31 05/26/19 11:31 05/26/19 11:31 05/26/19 11:31 - Laboratory Result Diagrams: 05/26/19 13:20 05/26/19 13:20 Laboratory results interpreted by me: 05/26/19 05/26/19 13:20 13:20 RDW 15.3 H Seg Neutrophils % 80.5 H Lymphocytes % 9.6 L Glucose 145 H Discharge - Discharge Clinical Impression: Urinary retention Hematuria Qualifiers: Hematuria type: unspecified type Qualified Code(s): R31.9 - Hematuria, unspecified Condition: Good Disposition: HOME, SELF-CARE Additional Instructions: Come back immediately for any pain, fever, vomiting, decreased urination, increased clots, or any other acute problems. Please follow-up with the appointment tomorrow with the urologist as scheduled. Referrals: JONATHAN REED MD [Primary Care Provider] - Follow up as needed
[2019-05-26 13:46] LABS: ABSOLUTE BASOPHILS # (AUTO) 0.1 10^3/uL (0.0-0.2); ABSOLUTE EOSINOPHILS # (AUTO) 0.1 10^3/uL (0.0-0.6); ABSOLUTE LYMPHOCYTES (AUTO) 0.7 10^3/uL (0.5-4.7); ABSOLUTE MONOCYTES (AUTO) 0.6 10^3/uL (0.1-1.4); BASOPHILS % (AUTO) 0.7 % (0-2); EOSINOPHILS % (AUTO) 0.8 % (0-6); LYMPHOCYTES % (AUTO) 9.6 % (13-45); MEAN CORPUSCULAR HEMOGLOBIN 30.8 pg (27.0-33.4); MEAN CORPUSCULAR HGB CONC 33.3 g/dL (32.0-36.0); MEAN CORPUSCULAR VOLUME 93 fl (80-97); MONOCYTES % (AUTO) 8.4 % (3-13); PLATELET COUNT 228 10^3/uL (150-450); RED BLOOD COUNT 4.53 10^6/uL (4.35-5.55); RED CELL DISTRIBUTION WIDTH 15.3 % (11.5-14.0); SEGMENTED NEUTROPHILS % (AUTO) 80.5 % (42-78); TOTAL CELLS COUNTED % (AUTO) 100 %; WHITE BLOOD COUNT 7.5 10^3/uL (4.0-10.5)
[2019-05-26 14:06] LABS: BLOOD UREA NITROGEN 19 mg/dL (7-20); CALCIUM 9.2 mg/dL (8.4-10.2); CARBON DIOXIDE 29 mmol/L (22-30); GLUCOSE 145 mg/dL (75-110); POTASSIUM 4.6 mmol/L (3.6-5.0)
[2019-05-26 14:12] LABS: ANION GAP 6 (5-19); CHLORIDE 104 mmol/L (98-107)
[2019-05-26] MEDS ORDERED: LIDOCAINE 2% URO-JET 5 ML KIT MM ONE (14:16)
[2019-05-26] MEDS ORDERED: CEFTRIAXONE 1 GM/D5W RTU 1 GM/50 ML RTUPB IV ONE (17:50)
[2019-05-26 19:09] VITALS: BP 105/74
== END 2019-05-26 19:21 | disposition home or self-care (01) ==
LOC: ER 11:24
DX: R33.9 Retention of urine, unspecified (principal); R31.9 Hematuria, unspecified; J44.9 Chronic obstructive pulmonary disease, unspecified; Z87.891 Personal history of nicotine dependence
CPT/HCPCS: 99283; 96375; 96365; 36415; 87086; 85025; 80048; C1758 ×3; J0696; A9270; J3490

== ENCOUNTER 2019-06-16 13:13 | Observation (INO) | payer MEDICARE, OTHER ==
--- NOTE | 2019-06-16 14:09 | RADIOLOGY REPORT (SQ) ---
EXAM DESCRIPTION: HIP RIGHT AP/LATERAL COMPLETED DATE/TIME: 06/16/2019 1:58 pm REASON FOR STUDY: bed 11 r/o hip fracture unable to put Wgt on it COMPARISON: None. NUMBER OF VIEWS: Two views. TECHNIQUE: AP pelvis and additional frog-leg view of the right hip. LIMITATIONS: None. FINDINGS: MINERALIZATION: Normal. RIGHT HIP: No fracture or dislocation. No worrisome bone lesions. LEFT HIP: No fracture or dislocation. No worrisome bone lesions. PUBIS AND ISCHIUM: No fracture. PELVIS: No fracture. SACRUM: No fracture or dislocation. No worrisome bone lesions. LOWER LUMBAR SPINE: No fracture or dislocation. No worrisome bone lesions. No significant disc disea se. SOFT TISSUES: No findings. OTHER: No other significant finding. IMPRESSION: NEGATIVE STUDY OF THE RIGHT HIP. NO RADIOGRAPHIC EVIDENCE OF ACUTE INJURY. COMMENT: Fractures are often occult on plain radiographs. If strong clinical suspicion for fracture , recommend CT or MR. TECHNICAL DOCUMENTATION: JOB ID: [id number] [employer]- All Rights Reserved Reading location - IP/workstation name: [email or web address]
[2019-06-16] MEDS ORDERED: HYDROMORPHONE HCL INJ/PF 2 MG/ML AMPULE IV ONE ×2 (14:52→16:18)
[2019-06-16] MEDS ORDERED: DIAZEPAM INJ 10 MG/2 ML DISP.SYRIN IV ONE (15:29)
--- NOTE | 2019-06-16 16:54 | ER Document Report ---
ED General - General Chief Complaint: Hip Pain Stated Complaint: HIP PAIN Time Seen by Provider: 06/16/19 13:48 Primary Care Provider: JONATHAN REED MD [Primary Care Provider] - Follow up as needed Mode of Arrival: Wheelchair Information source: Patient Notes: Patient is a 73-year-old male with history of COPD and CHF presenting after suffering a mechanical fall. Patient reports he was walking and slipped on his front porch. He states he fell directly onto his right hip is complaining of right hip and pelvis pain. He states he is unable to bear any weight. He denies any history of previous trauma to this area. TRAVEL OUTSIDE OF THE [place] IN LAST 30 DAYS: No - Related Data Allergies/Adverse Reactions: No Known Allergies Allergy (Verified 06/16/19 13:15) Past Medical History - General Information source: Patient - Social History Smoking Status: Current Every Day Smoker Frequency of alcohol use: None Drug Abuse: None Family History: None Patient has suicidal ideation: No Patient has homicidal ideation: No Pulmonary Medical History: Reports: Hx COPD Renal/ Medical History: Denies: Hx Peritoneal Dialysis Review of Systems - Review of Systems Constitutional: No symptoms reported EENT: No symptoms reported Cardiovascular: No symptoms reported Respiratory: No symptoms reported Gastrointestinal: No symptoms reported Genitourinary: No symptoms reported Male Genitourinary: No symptoms reported Musculoskeletal: See HPI Skin: No symptoms reported Hematologic/Lymphatic: No symptoms reported Neurological/Psychological: No symptoms reported Physical Exam - Vital signs Vitals: Temp Pulse Resp BP 98.1 F 78 20 148/90 H 06/16/19 13:32 06/16/19 13:32 06/16/19 13:32 06/16/19 13:32 - Notes Notes: PHYSICAL EXAMINATION: GENERAL: Well-appearing, well-nourished and in moderate distress. HEAD: Atraumatic, normocephalic. EYES: Pupils equal round and reactive to light, extraocular movements intact, sclera anicteric, conjunctiva are normal. ENT: Nares patent, oropharynx clear without exudates. Moist mucous membranes. NECK: Normal range of motion, supple without lymphadenopathy LUNGS: Breath sounds clear to auscultation bilaterally and equal. No wheezes rales or rhonchi. HEART: Regular rate and rhythm without murmurs ABDOMEN: Soft, nontender, nondistended abdomen. No guarding, no rebound. No masses appreciated. Musculoskeletal: Limited ROM to left lower extremiy due to pain. Strong femoral pulse, strong dorsalis pedis and posterior tibialis pulse, normal sensation distal to area of injury. No obvious rotation or shortening noted. NEUROLOGICAL: Cranial nerves grossly intact. Normal speech. Normal sensory, motor exams PSYCH: Normal mood, normal affect. SKIN: Warm, Dry, normal turgor, no rashes or lesions noted. Course - Re-evaluation Re-evalutation: 06/16/19 17:34 Hip/Pelvis X-Ray 06/16/19 00:00 IMPRESSION: NEGATIVE STUDY OF THE RIGHT HIP. NO RADIOGRAPHIC EVIDENCE OF ACUTE INJURY. Abdomen/Pelvis CT 06/16/19 16:13 IMPRESSION: Nondisplaced superior and inferior pubic rami fractures on the right. Nondisplaced vertical coronal fractures extending into the acetabulum on the right. Best seen on sagittal imaging. Hyperdense mass at the base of the bladder on the left. Tumor versus hemo rrhage. Gallstone. 3.4 cm infrarenal abdominal aortic aneurysm. Call placed to on-call orthopedic, Dr. Tanner. Currently awaiting callback. Patient's pain currently managed. 06/16/19 17:47 Patient accepted for admission by patient's primary care physician, Dr. Reed. - Vital Signs Vital signs: Temp Pulse Resp BP Pulse Ox 98.1 F 78 20 148/90 H 06/16/19 13:32 06/16/19 13:32 06/16/19 13:32 06/16/19 13:32 Discharge - Discharge Clinical Impression: Pubic ramus fracture Qualifiers: Encounter type: initial encounter Fracture type: closed Laterality: right Qualified Code(s): S32.591A - Other specified fracture of right pubis, initial encounter for closed fracture Acetabulum fracture, right Qualifiers: Encounter type: initial encounter Sublocation of acetabulum: unspecified portion of acetabulum Fracture type: closed Fracture alignment: nondisplaced Qualified Code(s): S32.401A - Unspecified fracture of right acetabulum, initial encounter for closed fracture Condition: Stable Disposition: ADMITTED INPATIENT Admitting Provider: [place] Unit Admitted: Telemetry Referrals: JONATHAN REED MD [Primary Care Provider] - Follow up as needed
--- NOTE | 2019-06-16 17:12 | RADIOLOGY REPORT (SQ) ---
EXAM DESCRIPTION: CT ABD/PELVIS NO ORAL OR IV COMPLETED DATE/TIME: 06/16/2019 4:46 pm REASON FOR STUDY: fall, left pelvic pain COMPARISON: None. TECHNIQUE: CT scan of the abdomen and pelvis performed without intravenous or oral contrast. Images reviewed with lung, soft tissue, and bone windows. Reconstructed coronal and sagittal MPR images revi ewed. All images stored on PACS. All CT scanners at this facility use dose modulation, iterative reconstruction, and/or weight based d osing when appropriate to reduce radiation dose to as low as reasonably achievable (ALARA). [facility]: Dose Right [facility]: CareDose [facility]: Dose Right [facility]: Teradose 4D [facility]: hipix RADIATION DOSE: CT Rad equipment meets quality standard of care and radiation dose reduction techniq ues were employed. CTDIvol: 11.6 mGy. DLP: 675 mGy-cm.mGy. LIMITATIONS: None. FINDINGS: LOWER CHEST: No significant findings. No nodules or infiltrates. NON-CONTRASTED LIVER, SPLEEN, ADRENALS: Evaluation limited by lack of IV contrast. No identified sign ificant masses. PANCREAS: No masses. No peripancreatic inflammatory changes. GALLBLADDER: No identified stones by CT criteria. No inflammatory changes to suggest cholecystitis. RIGHT KIDNEY AND URETER: No suspicious masses. Assessment limited by lack of IV contrast. No signif icant calcifications. No hydronephrosis or hydroureter. LEFT KIDNEY AND URETER: Well circumscribed low density mass(es) statistically most likely to be cyst( s). Assessment limited by lack of iv contrast. No significant calcifications. No hydronephrosis o r hydroureter. AORTA AND RETROPERITONEUM: 3.4 cm infrarenal abdominal aortic aneurysm. BOWEL AND PERITONEAL CAVITY: No obvious masses or inflammatory changes. No free fluid. APPENDIX: Normal. PELVIS, BLADDER, AND ABDOMINAL WALL:There is a hyperdense 4 cm mass at the base of the bladder on the left. Tumor versus hemorrhage. BONES: Nondisplaced superior and inferior pubic rami fractures on the right. There also nondisplaced vertical coronal fractures extending into the acetabulum on the right. This is best seen on sagitta l imaging. OTHER: No other significant finding. IMPRESSION: Nondisplaced superior and inferior pubic rami fractures on the right. Nondisplaced vertical coronal fractures extending into the acetabulum on the right. Best seen on sag ittal imaging. Hyperdense mass at the base of the bladder on the left. Tumor versus hemorrhage. Gallstone. 3.4 cm infrarenal abdominal aortic aneurysm. COMMENT: Quality ID # [id number]: Final reports with documentation of one or more dose reduction techniques (e.g., Automated exposure control, adjustment of the mA and/or kV according to patient size, use of iterative reconstruction technique) TECHNICAL DOCUMENTATION: JOB ID: [id number] [employer]- All Rights Reserved Reading location - IP/workstation name: [email or web address]
[2019-06-16] MEDS ORDERED: OXYCODONE-ACETAMINOPHEN 5-325 MG TABLET PO ONE (18:02)
[2019-06-16] MEDS ORDERED: ALBUTEROL SULFATE 0.083% NEB 2.5 MG/3 ML AMPUL NEB PRN (20:13)
[2019-06-16 20:45] LABS: ABSOLUTE BASOPHILS # (AUTO) 0.1 10^3/uL (0.0-0.2); ABSOLUTE MONOCYTES (AUTO) 0.8 10^3/uL (0.1-1.4); TOTAL CELLS COUNTED % (AUTO) 100 %
[2019-06-16 20:52] LABS: INTERNATIONAL RATION (INR) 1.07; PROTHROMBIN TIME 13.9 SEC (11.4-15.4)
[2019-06-16 20:53] LABS: PARTIAL THROMBOPLASTIN TIME 30.3 SEC (23.5-35.8)
[2019-06-16 20:56] LABS: ABSOLUTE LYMPHOCYTES (AUTO) 0.9 10^3/uL (0.5-4.7); ABSOLUTE NEUT (AUTO) 8.2 10^3/uL (1.7-8.2); BASOPHILS % (AUTO) 0.7 % (0-2); EOSINOPHILS % (AUTO) 0.1 % (0-6); HEMATOCRIT 38.1 % (37.9-51.0); HEMOGLOBIN 12.9 g/dL (13.5-17.0); LYMPHOCYTES % (AUTO) 9.2 % (13-45); MEAN CORPUSCULAR HEMOGLOBIN 31.1 pg (27.0-33.4); MEAN CORPUSCULAR HGB CONC 33.9 g/dL (32.0-36.0); MEAN CORPUSCULAR VOLUME 92 fl (80-97); MONOCYTES % (AUTO) 7.8 % (3-13); PLATELET COUNT 225 10^3/uL (150-450); RED BLOOD COUNT 4.15 10^6/uL (4.35-5.55); RED CELL DISTRIBUTION WIDTH 15.5 % (11.5-14.0); SEGMENTED NEUTROPHILS % (AUTO) 82.2 % (42-78); WHITE BLOOD COUNT 9.9 10^3/uL (4.0-10.5)
[2019-06-16 21:10] LABS: ALKALINE PHOSPHATASE 75 U/L (38-126); AMYLASE 53 U/L (30-110); ANION GAP 10 (5-19); ASPARTATE AMINO TRANSFERASE 30 U/L (17-59); BILIRUBIN,DIRECT 0.2 mg/dL (0.0-0.4); BILIRUBIN,TOTAL 0.7 mg/dL (0.2-1.3); BLOOD UREA NITROGEN 14 mg/dL (7-20); CALCIUM 8.8 mg/dL (8.4-10.2); CARBON DIOXIDE 25 mmol/L (22-30); CHLORIDE 100 mmol/L (98-107); CREATINE KINASE 223 U/L (55-170); GLUCOSE 252 mg/dL (75-110); POTASSIUM 4.4 mmol/L (3.6-5.0); TOTAL PROTEIN 6.5 g/dL (6.3-8.2)
[2019-06-16 21:19] LABS: CREATINE KINASE MB 1.39 ng/mL (<4.55); NT PRO BNP 262 pg/mL (5-900)
[2019-06-16 21:22] LABS: TROPONIN I < 0.012 ng/mL
[2019-06-16 21:24] LABS: FREE T4 (FREE THYROXINE) 0.88 ng/dL (0.78-2.19)
[2019-06-16 21:38] LABS: THYROID STIMULATING HORMONE 0.62 uIU/mL (0.47-4.68)
[2019-06-16] MEDS: TAMSULOSIN HCL 0.4 MG CAP.SR.24H PO SCH (21:38)
[2019-06-16] MEDS: NORMAL SALINE 1000 ML 1,000 ML IV PRN (21:38)
[2019-06-16] MEDS: HYDROMORPHONE HCL INJ/PF 2 MG/ML AMPULE IV PRN (21:38)
[2019-06-16] MEDS: FLUTICASONE/UMECLIDIN/VILANTER 100-62.5-25 MCG/DOSE IH SCH (22:16)
[2019-06-16 23:40] LABS: APPEARANCE,URINE CLEAR; BILIRUBIN,URINE NEGATIVE (NEGATIVE); COLOR,URINE YELLOW; GLUCOSE, URINE 150 mg/dL (NEGATIVE); KETONES,URINE NEGATIVE (NEGATIVE); LEUKOCYTE ESTERASE,URINE NEGATIVE (NEGATIVE); NITRITE,URINE NEGATIVE (NEGATIVE); PROTEIN,URINE NEGATIVE (NEGATIVE); URINE SPECIFIC GRAVITY 1.011; UROBILINOGEN,URINE NEGATIVE mg/dL (<2.0)
--- NOTE | 2019-06-16 23:51 | RADIOLOGY REPORT (SQ) ---
EXAM DESCRIPTION: CT ABDOMEN PELVIS WITH IV CONTRAST COMPLETED DATE/TME: 06/16/2019 00:00 CLINICAL HISTORY: 73 years Male, bladder tumor Comparison: None. Technique: IV contrast. Coronal and sagittal reformat. This exam was performed according to our departmental dose-optimization program, which includes automated exposure control, adjustment of the mA and/or kV according to patient size and/or use of iterative reconstruction technique. [facility]: Dose Right [facility]: CareDose [facility]: Dose Right [facility]: Teradose 4D [facility]: [employer] LIMITATIONS: None Findings: Acute comminuted intra-articular fracture of the right acetabulum and right iliac wing.Acute nondisplaced fracture of the right paracentral pubic symphysis and right inferior pubic ramus. Likely enhancing solid appearing 3.9 cm left paracentral posterior urinary bladder wall mass. 3.1 x 3.0 cm infrarenal abdominal aortic aneurysm. Recommend follow-up every three years. 3 cm umbilical fat only hernia. Small left inguinal fat only hernia. Cholelithiasis. Likely benign renal cyst(s), not definitively characterized. Atherosclerotic vascular disease. No ascites. Inferior thorax, liver, gallbladder, pancreas, spleen, adrenals, renal system, gastrointestinal tract, pelvic organs, lymphatics, vasculature, and musculoskeleton appear otherwise unremarkable. IMPRESSION: 1. Acute comminuted intra-articular fracture of the right acetabulum and right iliac wing. Acute nondisplaced fracture of the right paracentral pubic symphysis and right inferior pubic ramus. 2. 3.9 cm bladder mass. Differential etiologies include infectious, inflammatory, hemorrhagic, and neoplastic processes. 3. 3.1 x 3.0 cm infrarenal abdominal aortic aneurysm. Recommend follow-up every three years. 4. Cholelithiasis.
[2019-06-17] MEDS: HEPARIN SOD (PORCINE) 5,000 UNIT/ML 1 ML VIAL SUBCUT SCH ×4 (00:56→21:15)
[2019-06-17 03:11] LABS: ABSOLUTE BASOPHILS # (AUTO) 0.1 10^3/uL (0.0-0.2); ABSOLUTE LYMPHOCYTES (AUTO) 1.2 10^3/uL (0.5-4.7); ABSOLUTE MONOCYTES (AUTO) 0.9 10^3/uL (0.1-1.4); ABSOLUTE NEUT (AUTO) 5.7 10^3/uL (1.7-8.2); BASOPHILS % (AUTO) 0.7 % (0-2); EOSINOPHILS % (AUTO) 0.6 % (0-6); HEMATOCRIT 35.6 % (37.9-51.0); HEMOGLOBIN 12.2 g/dL (13.5-17.0); LYMPHOCYTES % (AUTO) 15.1 % (13-45); MEAN CORPUSCULAR HEMOGLOBIN 31.5 pg (27.0-33.4); MEAN CORPUSCULAR HGB CONC 34.3 g/dL (32.0-36.0); MEAN CORPUSCULAR VOLUME 92 fl (80-97); MONOCYTES % (AUTO) 11.3 % (3-13); PLATELET COUNT 207 10^3/uL (150-450); RED BLOOD COUNT 3.87 10^6/uL (4.35-5.55); RED CELL DISTRIBUTION WIDTH 15.8 % (11.5-14.0); SEGMENTED NEUTROPHILS % (AUTO) 72.3 % (42-78); TOTAL CELLS COUNTED % (AUTO) 100 %; WHITE BLOOD COUNT 7.8 10^3/uL (4.0-10.5)
[2019-06-17 03:34] LABS: ALBUMIN 3.5 g/dL (3.5-5.0); ALKALINE PHOSPHATASE 66 U/L (38-126); ANION GAP 6 (5-19); ASPARTATE AMINO TRANSFERASE 22 U/L (17-59); BILIRUBIN,DIRECT 0.3 mg/dL (0.0-0.4); BILIRUBIN,TOTAL 0.7 mg/dL (0.2-1.3); BLOOD UREA NITROGEN 13 mg/dL (7-20); CALCIUM 8.8 mg/dL (8.4-10.2); CARBON DIOXIDE 29 mmol/L (22-30); CHLORIDE 100 mmol/L (98-107); GLUCOSE 193 mg/dL (75-110); POTASSIUM 4.6 mmol/L (3.6-5.0); TOTAL PROTEIN 5.9 g/dL (6.3-8.2)
[2019-06-17 03:51] LABS: TROPONIN I < 0.012 ng/mL
[2019-06-17] MEDS: HYDROMORPHONE HCL INJ/PF 2 MG/ML AMPULE IV PRN ×4 (05:32→21:15)
[2019-06-17] MEDS: TAMSULOSIN HCL 0.4 MG CAP.SR.24H PO SCH (09:59)
[2019-06-17] MEDS: FLUTICASONE/UMECLIDIN/VILANTER 100-62.5-25 MCG/DOSE IH SCH (10:00)
[2019-06-17 10:43] LABS: TROPONIN I < 0.012 ng/mL
--- NOTE | 2019-06-17 16:17 | PDOC CONSULTATION ---
Consultation Consult Date: 06/17/19 Attending physician:: JONATHAN REED Provider Consulted: GINGER MCCALL Consult reason:: 1. Nondisplaced right acetabulum fracture. 2. Nondisplaced pelvic fracture: Superior and inferior pubic rami fractures History of Present Illness Admission Date/PCP: 06/16/19 18:15 JONATHAN REED MD Patient complains of: right hip pain History of Present Illness: VERONIKA CRABRTEE is a 73 year old male who sustained a low energy fall at home yesterday. He states that he slipped on his front porch. He had presented to the emergency department complaining of pain in the right hip as well as an inability to bear weight on his leg. CT scan of the right hip demonstrated nondisplaced fractures of the pelvis and acetabulum. Past Medical History Cardiac Medical History: Reports: Congestive Heart Failure Pulmonary Medical History: Reports: Chronic Obstructive Pulmonary Disease (COPD) Psychiatric Medical History: Denies: Depression Social History Information Source: Patient Lives with: Spouse/Significant other - Smoking Status: Former Smoker Frequency of Alcohol Use: Rare Hx Recreational Drug Use: No Drugs: None Hx Prescription Drug Abuse: No - Advance Directive Resuscitation Status: Full Code Family History Family History: None. denies: Reviewed & Not Pertinent, Arthritis, CAD, COPD, CVA, DM, Hyperlipidemia, Hypertension, Malignancy, Thyroid Disfunction, Other Parental Family History Reviewed: Yes Children Family History Reviewed: NA Sibling(s) Family History Reviewed.: NA Medication/Allergy Home Medications: Albuterol Sulfate [Ventolin 0.083% Neb 2.5 mg/3 mL Ampul] 3 ml NEB Q4HP PRN 06/16/19 Fluticasone/Umeclidin/Vilanter [Trelegy 100-62.5-25 Mcg Ellipta 14 Dose/Dpi] 1 puff IH DAILY 06/16/19 Tamsulosin HCl [Flomax 0.4 mg Cap.sr] 0.4 mg PO DAILY 06/16/19 Allergies/Adverse Reactions: No Known Allergies Allergy (Verified 06/16/19 13:15) Physical Exam Vital Signs: Temp Pulse Resp BP Pulse Ox 98.1 F 78 16 129/75 H 97 06/17/19 15:14 06/17/19 15:14 06/17/19 15:14 06/17/19 15:14 06/17/19 15:14 Intake & Output 06/16/19 06/17/19 06/18/19 06:59 06:59 06:59 Intake Total 1850 240 Output Total 1675 200 Balance 175 40 Weight 86.6 kg General appearance: PRESENT: no acute distress Head exam: PRESENT: atraumatic, normocephalic Eye exam: PRESENT: conjunctiva pink, EOMI, PERRLA. ABSENT: scleral icterus Ear exam: PRESENT: normal external ear exam Mouth exam: PRESENT: moist, tongue midline. ABSENT: dry mucosa, laceration, neck supple, other Neck exam: ABSENT: carotid bruit - Normal exam, JVD, lymphadenopathy, thyromegaly Respiratory exam: PRESENT: clear to auscultation master. ABSENT: rales, rhonchi, wheezes Cardiovascular exam: PRESENT: RRR. ABSENT: diastolic murmur, rubs, systolic murmur Pulses: PRESENT: +2 pedal pulses bilateral Vascular exam: PRESENT: normal capillary refill GI/Abdominal exam: PRESENT: normal bowel sounds, soft. ABSENT: distended, guarding, mass, organolmegaly, rebound, tenderness Rectal exam: PRESENT: deferred Extremities exam: PRESENT: other - There is tenderness to palpation of the superior and inferior pubic rami of the right hemipelvis. There is discomfort in the groin with gentle internal and external rotation of the right hip. There is normal motion of the knee, ankle, and foot without discomfort. Sensation is intact to touch. Pulses are normal.. ABSENT: calf tenderness, clubbing, full ROM, joint swelling, pedal edema, tenderness, +1 edema, +2 edema Musculoskeletal exam: PRESENT: other - There is tenderness to palpation of the superior and inferior pubic rami of the right hemipelvis. There is discomfort in the groin with gentle internal and external rotation of the right hip. There is normal motion of the knee, ankle, and foot without discomfort. Neurological exam: PRESENT: alert, awake, oriented to person, oriented to place, oriented to time, oriented to situation, CN II-XII grossly intact. ABSENT: motor sensory deficit Psychiatric exam: PRESENT: appropriate affect, normal mood. ABSENT: homicidal ideation, suicidal ideation Skin exam: PRESENT: dry, intact, warm. ABSENT: cyanosis, rash Results Laboratory Results: 06/17/19 03:02 06/17/19 03:02 06/16/19 06/16/19 06/16/19 20:35 20:35 20:35 WBC 9.9 RBC 4.15 L Hgb 12.9 L Hct 38.1 MCV 92 MCH 31.1 MCHC 33.9 RDW 15.5 H Plt Count 225 Seg Neutrophils % 82.2 H Lymphocytes % 9.2 L Monocytes % 7.8 Eosinophils % 0.1 Basophils % 0.7 Absolute Neutrophils 8.2 Absolute Lymphocytes 0.9 Absolute Monocytes 0.8 Absolute Eosinophils 0.0 Absolute Basophils 0.1 Sodium 135.2 L Potassium 4.4 Chloride 100 Carbon Dioxide 25 Anion Gap 10 BUN 14 Creatinine 0.81 Est GFR ( Amer) > 60 Est GFR (Non-Af Amer) > 60 Glucose 252 H Calcium 8.8 Phosphorus 4.0 Magnesium 1.7 Total Bilirubin 0.7 AST 30 Alkaline Phosphatase 75 Ammonia Total Protein 6.5 Albumin 4.0 Amylase 53 Lipase 24.3 TSH 0.62 Free T4 0.88 Urine Color Urine Appearance Urine pH Ur Specific [place] Urine Protein Urine Glucose (UA) Urine Ketones Urine Blood Urine Nitrite Ur Leukocyte Esterase Urine WBC (Auto) Urine RBC (Auto) 06/16/19 06/16/19 06/17/19 20:35 23:05 03:02 WBC 7.8 RBC 3.87 L Hgb 12.2 L Hct 35.6 L MCV 92 MCH 31.5 MCHC 34.3 RDW 15.8 H Plt Count 207 Seg Neutrophils % 72.3 Lymphocytes % 15.1 Monocytes % 11.3 Eosinophils % 0.6 Basophils % 0.7 Absolute Neutrophils 5.7 Absolute Lymphocytes 1.2 Absolute Monocytes 0.9 Absolute Eosinophils 0.0 Absolute Basophils 0.1 Sodium Potassium Chloride Carbon Dioxide Anion Gap BUN Creatinine Est GFR ( Amer) Est GFR (Non-Af Amer) Glucose Calcium Phosphorus Magnesium Total Bilirubin AST Alkaline Phosphatase Ammonia < 8.7 L Total Protein Albumin Amylase Lipase TSH Free T4 Urine Color YELLOW Urine Appearance CLEAR Urine pH 7.0 Ur Specific [place] 1.011 Urine Protein NEGATIVE Urine Glucose (UA) 150 H Urine Ketones NEGATIVE Urine Blood NEGATIVE Urine Nitrite NEGATIVE Ur Leukocyte Esterase NEGATIVE Urine WBC (Auto) 2 Urine RBC (Auto) 0 06/17/19 03:02 WBC RBC Hgb Hct MCV MCH MCHC RDW Plt Count Seg Neutrophils % Lymphocytes % Monocytes % Eosinophils % Basophils % Absolute Neutrophils Absolute Lymphocytes Absolute Monocytes Absolute Eosinophils Absolute Basophils Sodium 134.5 L Potassium 4.6 Chloride 100 Carbon Dioxide 29 Anion Gap 6 BUN 13 Creatinine 0.77 Est GFR ( Amer) > 60 Est GFR (Non-Af Amer) > 60 Glucose 193 H Calcium 8.8 Phosphorus Magnesium Total Bilirubin 0.7 AST 22 Alkaline Phosphatase 66 Ammonia Total Protein 5.9 L Albumin 3.5 Amylase Lipase TSH Free T4 Urine Color Urine Appearance Urine pH Ur Specific [place] Urine Protein Urine Glucose (UA) Urine Ketones Urine Blood Urine Nitrite Ur Leukocyte Esterase Urine WBC (Auto) Urine RBC (Auto) 06/16/19 06/16/19 06/17/19 20:35 20:35 03:02 Creatine Kinase 223 H 186 H CK-MB (CK-2) 1.39 Troponin I < 0.012 NT-Pro-B Natriuret Pep 262 06/17/19 06/17/19 06/17/19 03:02 09:44 09:44 Creatine Kinase 152 CK-MB (CK-2) 1.30 1.30 Troponin I < 0.012 < 0.012 NT-Pro-B Natriuret Pep Impressions: Hip/Pelvis X-Ray 06/16/19 00:00 IMPRESSION: NEGATIVE STUDY OF THE RIGHT HIP. NO RADIOGRAPHIC EVIDENCE OF ACUTE INJURY. Abdomen/Pelvis CT 06/16/19 16:13 IMPRESSION: Nondisplaced superior and inferior pubic rami fractures on the right. Nondisplaced vertical coronal fractures extending into the acetabulum on the right. Best seen on sagittal imaging. Hyperdense mass at the base of the bladder on the left. Tumor versus hemorrhage. Gallstone. 3.4 cm infrarenal abdominal aortic aneurysm. Assessment & Plan - Diagnosis (1) Acetabulum fracture, right Qualifiers: Encounter type: initial encounter Sublocation of acetabulum: dome Fracture type: closed Fracture alignment: nondisplaced Qualified Code(s): S32.484A - Nondisplaced dome fracture of right acetabulum, initial encounter for closed fracture Is this a current diagnosis for this admission?: Yes Plan: The fracture of the acetabulum is nondisplaced. I recommended nonoperative treatment. I have ordered physical therapy for ambulation training. The patient may proceed with weightbearing as tolerated on the right extremity. I have discussed with the patient that initially he will likely place very little weight on the extremity and his tolerance for weightbearing will parallel fracture consolidation. We have discussed the course of nonoperative treatment as well as expectations for the duration of full recovery. He understands that if symptoms worsen or change or if he experiences an additional traumatic event, he requires urgent evaluation with imaging. (2) Pubic ramus fracture Qualifiers: Encounter type: initial encounter Fracture type: closed Laterality: right Qualified Code(s): S32.591A - Other specified fracture of right pubis, initial encounter for closed fracture Plan: Fractures of the pelvis are nondisplaced. I have recommended nonoperative treatment. I have ordered physical therapy for ambulation training. The patient may be weightbearing as tolerated with assist device. - Time Time Spent: 50 to 70 Minutes Anticipated discharge: SNF Within: within 72 hours
--- NOTE | 2019-06-17 20:12 | PDOC H&P ---
History of Present Illness Admission Date/PCP: 06/16/19 18:15 JONATHAN REED MD History of Present Illness: VERONIKA CRABTREE is a 73 year old male,He came to the emergency room for evaluation of hip pain after a fall at home,in the emergency room a CAT scan of the abdomen and pelvis without contrast was obtained there was a well circumscribed low-density mass in the left kidney most likely cyst also found was a 4 cm mass at the base of the left bladder there was also a nondisplaced superior and inferior pubic rami fracture on the right pelvis with a nondisplaced fracture extending into the acetabulum, patient was offered hospital admission for management of his symptoms. There was no antecedent loss of consciousness, no chest pain ,Subsequent CAT scan with contrast of the abdomen and pelvis was obtained it again demonstrated acute comminuted intra-articular fracture of the right acetabulum and the right iliac wing, acute nondisplaced fracture of the right paracentral pubic symphysis and the right inferior pubic ramus and also an enhancing solid mass that measure 3.9 cm in the posterior urinary bladder wall this is suspicious for neoplasm especially in this patient with History of smoking Past Medical History Pulmonary Medical History: Reports: Chronic Obstructive Pulmonary Disease (COPD) Social History Lives with: Spouse/Significant other - Smoking Status: Former Smoker Frequency of Alcohol Use: Rare Hx Recreational Drug Use: No Drugs: None Hx Prescription Drug Abuse: No - Advance Directive Resuscitation Status: Full Code Family History Family History: None, Reviewed & Not Pertinent Parental Family History Reviewed: Yes Children Family History Reviewed: Yes Sibling(s) Family History Reviewed.: Yes Medication/Allergy Home Medications: Albuterol Sulfate [Ventolin 0.083% Neb 2.5 mg/3 mL Ampul] 3 ml NEB Q4HP PRN 06/16/19 Fluticasone/Umeclidin/Vilanter [Trelegy 100-62.5-25 Mcg Ellipta 14 Dose/Dpi] 1 puff IH DAILY 06/16/19 Tamsulosin HCl [Flomax 0.4 mg Cap.sr] 0.4 mg PO DAILY 06/16/19 Allergies/Adverse Reactions: No Known Allergies Allergy (Verified 06/16/19 13:15) Review of Systems Constitutional: ABSENT: chills, fever(s), headache(s), weight gain, weight loss Eyes: ABSENT: visual disturbances Ears: ABSENT: hearing changes Cardiovascular: ABSENT: chest pain, dyspnea on exertion, edema, orthropnea, palpitations Respiratory: ABSENT: cough, hemoptysis Gastrointestinal: ABSENT: abdominal pain, constipation, diarrhea, hematemesis, hematochezia, nausea, vomiting Genitourinary: ABSENT: dysuria, hematuria Musculoskeletal: PRESENT: back pain Integumentary: ABSENT: rash, wounds Neurological: ABSENT: abnormal gait, abnormal speech, confusion, dizziness, focal weakness, syncope Psychiatric: ABSENT: anxiety, depression, homidical ideation, suicidal ideation Endocrine: ABSENT: cold intolerance, heat intolerance, menstrual abnormalities, polydipsia, polyuria Hematologic/Lymphatic: ABSENT: easy bleeding, easy bruising, lymphadenopathy Physical Exam Vital Signs: Temp Pulse Resp BP Pulse Ox 98.1 F 78 16 129/75 H 97 06/17/19 15:14 06/17/19 15:14 06/17/19 15:14 06/17/19 15:14 06/17/19 15:14 Intake & Output 06/16/19 06/17/19 06/18/19 06:59 06:59 06:59 Intake Total 1850 1200 Output Total 1675 1150 Balance 175 50 Weight 86.6 kg General appearance: PRESENT: no acute distress Head exam: PRESENT: atraumatic, normocephalic Eye exam: PRESENT: PERRLA Neck exam: PRESENT: full ROM Respiratory exam: PRESENT: clear to auscultation master Cardiovascular exam: PRESENT: RRR, +S1, +S2 GI/Abdominal exam: PRESENT: normal bowel sounds, soft Rectal exam: PRESENT: deferred Neurological exam: PRESENT: alert, CN II-XII grossly intact Psychiatric exam: PRESENT: appropriate affect, normal mood Skin exam: PRESENT: dry, intact, warm Results Laboratory Results: 06/17/19 03:02 06/17/19 03:02 06/16/19 06/16/19 06/16/19 20:35 20:35 20:35 WBC 9.9 RBC 4.15 L Hgb 12.9 L Hct 38.1 MCV 92 MCH 31.1 MCHC 33.9 RDW 15.5 H Plt Count 225 Seg Neutrophils % 82.2 H Lymphocytes % 9.2 L Monocytes % 7.8 Eosinophils % 0.1 Basophils % 0.7 Absolute Neutrophils 8.2 Absolute Lymphocytes 0.9 Absolute Monocytes 0.8 Absolute Eosinophils 0.0 Absolute Basophils 0.1 Sodium 135.2 L Potassium 4.4 Chloride 100 Carbon Dioxide 25 Anion Gap 10 BUN 14 Creatinine 0.81 Est GFR ( Amer) > 60 Est GFR (Non-Af Amer) > 60 Glucose 252 H Calcium 8.8 Phosphorus 4.0 Magnesium 1.7 Total Bilirubin 0.7 AST 30 Alkaline Phosphatase 75 Ammonia Total Protein 6.5 Albumin 4.0 Amylase 53 Lipase 24.3 TSH 0.62 Free T4 0.88 Urine Color Urine Appearance Urine pH Ur Specific [place] Urine Protein Urine Glucose (UA) Urine Ketones Urine Blood Urine Nitrite Ur Leukocyte Esterase Urine WBC (Auto) Urine RBC (Auto) 06/16/19 06/16/19 06/17/19 20:35 23:05 03:02 WBC 7.8 RBC 3.87 L Hgb 12.2 L Hct 35.6 L MCV 92 MCH 31.5 MCHC 34.3 RDW 15.8 H Plt Count 207 Seg Neutrophils % 72.3 Lymphocytes % 15.1 Monocytes % 11.3 Eosinophils % 0.6 Basophils % 0.7 Absolute Neutrophils 5.7 Absolute Lymphocytes 1.2 Absolute Monocytes 0.9 Absolute Eosinophils 0.0 Absolute Basophils 0.1 Sodium Potassium Chloride Carbon Dioxide Anion Gap BUN Creatinine Est GFR ( Amer) Est GFR (Non-Af Amer) Glucose Calcium Phosphorus Magnesium Total Bilirubin AST Alkaline Phosphatase Ammonia < 8.7 L Total Protein Albumin Amylase Lipase TSH Free T4 Urine Color YELLOW Urine Appearance CLEAR Urine pH 7.0 Ur Specific [place] 1.011 Urine Protein NEGATIVE Urine Glucose (UA) 150 H Urine Ketones NEGATIVE Urine Blood NEGATIVE Urine Nitrite NEGATIVE Ur Leukocyte Esterase NEGATIVE Urine WBC (Auto) 2 Urine RBC (Auto) 0 06/17/19 03:02 WBC RBC Hgb Hct MCV MCH MCHC RDW Plt Count Seg Neutrophils % Lymphocytes % Monocytes % Eosinophils % Basophils % Absolute Neutrophils Absolute Lymphocytes Absolute Monocytes Absolute Eosinophils Absolute Basophils Sodium 134.5 L Potassium 4.6 Chloride 100 Carbon Dioxide 29 Anion Gap 6 BUN 13 Creatinine 0.77 Est GFR ( Amer) > 60 Est GFR (Non-Af Amer) > 60 Glucose 193 H Calcium 8.8 Phosphorus Magnesium Total Bilirubin 0.7 AST 22 Alkaline Phosphatase 66 Ammonia Total Protein 5.9 L Albumin 3.5 Amylase Lipase TSH Free T4 Urine Color Urine Appearance Urine pH Ur Specific [place] Urine Protein Urine Glucose (UA) Urine Ketones Urine Blood Urine Nitrite Ur Leukocyte Esterase Urine WBC (Auto) Urine RBC (Auto) 06/16/19 06/16/19 06/17/19 20:35 20:35 03:02 Creatine Kinase 223 H 186 H CK-MB (CK-2) 1.39 Troponin I < 0.012 NT-Pro-B Natriuret Pep 262 06/17/19 06/17/19 06/17/19 03:02 09:44 09:44 Creatine Kinase 152 CK-MB (CK-2) 1.30 1.30 Troponin I < 0.012 < 0.012 NT-Pro-B Natriuret Pep Impressions: Hip/Pelvis X-Ray 06/16/19 00:00 IMPRESSION: NEGATIVE STUDY OF THE RIGHT HIP. NO RADIOGRAPHIC EVIDENCE OF ACUTE INJURY. Abdomen/Pelvis CT 06/16/19 16:13 IMPRESSION: Nondisplaced superior and inferior pubic rami fractures on the right. Nondisplaced vertical coronal fractures extending into the acetabulum on the right. Best seen on sagittal imaging. Hyperdense mass at the base of the bladder on the left. Tumor versus hemo rrhage. Gallstone. 3.4 cm infrarenal abdominal aortic aneurysm. Assessment & Plan - Diagnosis (1) Acetabulum fracture, right Qualifiers: Encounter type: initial encounter Sublocation of acetabulum: dome Fracture type: closed Fracture alignment: nondisplaced Qualified Code(s): S32.484A - Nondisplaced dome fracture of right acetabulum, initial encounter for closed fracture Is this a current diagnosis for this admission?: Yes Plan: There is no surgical operative indication for this fracture consultation will be obtained from orthopedic (2) Pubic ramus fracture Qualifiers: Encounter type: initial encounter Fracture type: closed Laterality: right Qualified Code(s): S32.591A - Other specified fracture of right pubis, initial encounter for closed fracture Is this a current diagnosis for this admission?: Yes (3) Abdominal aortic aneurysm Qualifiers: Presence of rupture: without rupture Qualified Code(s): I71.4 - Abdominal aortic aneurysm, without rupture Is this a current diagnosis for this admission?: Yes (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
[2019-06-18] MEDS: HYDROMORPHONE HCL INJ/PF 2 MG/ML AMPULE IV PRN ×4 (03:26→21:15)
[2019-06-18 06:02] LABS: ABSOLUTE BASOPHILS # (AUTO) 0.1 10^3/uL (0.0-0.2); ABSOLUTE EOSINOPHILS # (AUTO) 0.1 10^3/uL (0.0-0.6); ABSOLUTE LYMPHOCYTES (AUTO) 1.4 10^3/uL (0.5-4.7); ABSOLUTE MONOCYTES (AUTO) 0.8 10^3/uL (0.1-1.4); ABSOLUTE NEUT (AUTO) 3.5 10^3/uL (1.7-8.2); EOSINOPHILS % (AUTO) 2.2 % (0-6); HEMOGLOBIN 12.1 g/dL (13.5-17.0); LYMPHOCYTES % (AUTO) 23.8 % (13-45); MEAN CORPUSCULAR HEMOGLOBIN 31.4 pg (27.0-33.4); MEAN CORPUSCULAR HGB CONC 33.6 g/dL (32.0-36.0); MEAN CORPUSCULAR VOLUME 93 fl (80-97); MONOCYTES % (AUTO) 13.9 % (3-13); PLATELET COUNT 203 10^3/uL (150-450); RED BLOOD COUNT 3.86 10^6/uL (4.35-5.55); RED CELL DISTRIBUTION WIDTH 15.7 % (11.5-14.0); SEGMENTED NEUTROPHILS % (AUTO) 59.1 % (42-78); TOTAL CELLS COUNTED % (AUTO) 100 %; WHITE BLOOD COUNT 5.9 10^3/uL (4.0-10.5)
[2019-06-18] MEDS: HEPARIN SOD (PORCINE) 5,000 UNIT/ML 1 ML VIAL SUBCUT SCH ×3 (06:45→21:16)
[2019-06-18] MEDS: FLUTICASONE/UMECLIDIN/VILANTER 100-62.5-25 MCG/DOSE IH SCH (09:34)
[2019-06-18] MEDS: TAMSULOSIN HCL 0.4 MG CAP.SR.24H PO SCH (09:34)
[2019-06-18] MEDS: NORMAL SALINE 1000 ML 1,000 ML IV PRN (16:18)
[2019-06-19] MEDS: NORMAL SALINE 1000 ML 1,000 ML IV PRN (02:15)
[2019-06-19] MEDS: HYDROMORPHONE HCL INJ/PF 2 MG/ML AMPULE IV PRN (02:15)
[2019-06-19 04:43] VITALS: BP 140/98
[2019-06-19] MEDS: HEPARIN SOD (PORCINE) 5,000 UNIT/ML 1 ML VIAL SUBCUT SCH ×2 (05:07→13:04)
[2019-06-19 05:58] LABS: ABSOLUTE EOSINOPHILS # (AUTO) 0.2 10^3/uL (0.0-0.6); ABSOLUTE LYMPHOCYTES (AUTO) 1.6 10^3/uL (0.5-4.7); ABSOLUTE MONOCYTES (AUTO) 0.9 10^3/uL (0.1-1.4); ABSOLUTE NEUT (AUTO) 3.5 10^3/uL (1.7-8.2); BASOPHILS % (AUTO) 0.8 % (0-2); EOSINOPHILS % (AUTO) 2.6 % (0-6); HEMATOCRIT 36.7 % (37.9-51.0); HEMOGLOBIN 12.6 g/dL (13.5-17.0); MEAN CORPUSCULAR HEMOGLOBIN 31.7 pg (27.0-33.4); MEAN CORPUSCULAR HGB CONC 34.3 g/dL (32.0-36.0); MEAN CORPUSCULAR VOLUME 92 fl (80-97); MONOCYTES % (AUTO) 14.8 % (3-13); PLATELET COUNT 207 10^3/uL (150-450); RED BLOOD COUNT 3.98 10^6/uL (4.35-5.55); RED CELL DISTRIBUTION WIDTH 15.8 % (11.5-14.0); SEGMENTED NEUTROPHILS % (AUTO) 55.8 % (42-78); TOTAL CELLS COUNTED % (AUTO) 100 %; WHITE BLOOD COUNT 6.3 10^3/uL (4.0-10.5)
[2019-06-19] MEDS ORDERED: OXYCODONE-ACETAMINOPHEN 5-325 MG TABLET PO PRN (08:38)
[2019-06-19] MEDS: TAMSULOSIN HCL 0.4 MG CAP.SR.24H PO SCH (09:31)
[2019-06-19] MEDS: FLUTICASONE/UMECLIDIN/VILANTER 100-62.5-25 MCG/DOSE IH SCH (09:32)
--- NOTE | 2019-06-19 12:48 | PDOC DISCHARGE SUMMARY ---
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 Is this a current diagnosis for this admission?: Yes - Additional Information Resuscitation Status: Full Code Prescriptions: Oxycodone HCl/Acetaminophen [Percocet 5-325 mg Tablet] 1 tab PO Q4HP PRN #28 tablet PRN Reason: Home Medications: Albuterol Sulfate [Ventolin 0.083% Neb 2.5 mg/3 mL Ampul] 3 ml NEB Q4HP PRN Fluticasone/Umeclidin/Vilanter [Trelegy 100-62.5-25 Mcg Ellipta 14 Dose/Dpi] 1 puff IH DAILY 06/16/19 Tamsulosin HCl [Flomax 0.4 mg Cap.sr] 0.4 mg PO DAILY 06/16/19 Oxycodone HCl/Acetaminophen [Percocet 5-325 mg Tablet] 1 tab PO Q4HP PRN #28 tablet 06/19/19 History of Present Illness History of Present Illness: VERONIKA CRABTREE is a 73 year old male,He came to the emergency room for evaluation of hip pain after a fall at home,in the emergency room a CAT scan of the abdomen and pelvis without contrast was obtained there was a well circumscribed low-density mass in the left kidney most likely cyst also found was a 4 cm mass at the base of the left bladder there was also a nondisplaced superior and inferior pubic rami fracture on the right pelvis with a nondisplaced fracture extending into the acetabulum, patient was offered hospital admission for management of his symptoms. There was no antecedent loss of consciousness, no chest pain ,Subsequent CAT scan with contrast of the abdomen and pelvis was obtained it again demonstrated acute comminuted intra-articular fracture of the right acetabulum and the right iliac wing, acute nondisplaced fracture of the right paracentral pubic symphysis and the right inferior pubic ramus and also an enhancing solid mass that measure 3.9 cm in the posterior urinary bladder wall this is suspicious for neoplasm especially in this patient with History of smoking Hospital Course Hospital Course: Patient was admitted for the management of pelvic bone fracture, he was managed conservatively, he was seen by orthopedic, no surgical intervention is recomme nded. He was found to have a neoplasm in the urinary bladder from the CAT scan that was done, he stated that he is aware of the neoplasm in his bladder, he follows with urology is supposed to have cystoscopy. Pain control was achieved with IV Dilaudid, he was seen by physical therapy Physical Exam Vital Signs: Temp Pulse Resp BP Pulse Ox 98.0 F 66 16 140/98 H 98 06/19/19 04:00 06/19/19 07:00 06/19/19 04:00 06/19/19 04:00 06/19/19 04:00 Intake & Output 06/18/19 06/19/19 06/20/19 06:59 06:59 06:59 Intake Total 1625 3705 Output Total 2625 3200 Balance -1000 505 Weight 74.6 kg 84.2 kg General appearance: PRESENT: no acute distress, well-developed, well-nourished Head exam: PRESENT: atraumatic, normocephalic Eye exam: PRESENT: conjunctiva pink, EOMI, PERRLA Ear exam: PRESENT: normal external ear exam Mouth exam: PRESENT: moist, tongue midline Neck exam: PRESENT: full ROM Cardiovascular exam: PRESENT: RRR, +S1, +S2 Pulses: PRESENT: normal dorsalis pedis pul, +2 pedal pulses bilateral Vascular exam: PRESENT: normal capillary refill GI/Abdominal exam: PRESENT: normal bowel sounds, soft Rectal exam: PRESENT: deferred Neurological exam: PRESENT: alert, CN II-XII grossly intact Psychiatric exam: PRESENT: appropriate affect, normal mood Skin exam: PRESENT: dry, intact, warm Results Laboratory Results: 06/19/19 05:10 06/17/19 03:02 06/19/19 05:10 WBC 6.3 RBC 3.98 L Hgb 12.6 L Hct 36.7 L MCV 92 MCH 31.7 MCHC 34.3 RDW 15.8 H Plt Count 207 Seg Neutrophils % 55.8 Lymphocytes % 26.0 Monocytes % 14.8 H Eosinophils % 2.6 Basophils % 0.8 Absolute Neutrophils 3.5 Absolute Lymphocytes 1.6 Absolute Monocytes 0.9 Absolute Eosinophils 0.2 Absolute Basophils 0.0 06/16/19 23:05 Clean Catch Midstream Urine Culture - Final NO GROWTH 2 DAYS 06/16/19 06/16/19 06/17/19 20:35 20:35 03:02 Creatine Kinase 223 H 186 H CK-MB (CK-2) 1.39 Troponin I < 0.012 NT-Pro-B Natriuret Pep 262 06/17/19 06/17/19 06/17/19 03:02 09:44 09:44 Creatine Kinase 152 CK-MB (CK-2) 1.30 1.30 Troponin I < 0.012 < 0.012 NT-Pro-B Natriuret Pep Impressions: Hip/Pelvis X-Ray 06/16/19 00:00 IMPRESSION: NEGATIVE STUDY OF THE RIGHT HIP. NO RADIOGRAPHIC EVIDENCE OF ACUTE INJURY. Abdomen/Pelvis CT 06/16/19 16:13 IMPRESSION: Nondisplaced superior and inferior pubic rami fractures on the right. Nondisplaced vertical coronal fractures extending into the acetabulum on the right. Best seen on sagittal imaging. Hyperdense mass at the base of the bladder on the left. Tumor versus he morrhage. Gallstone. 3.4 cm infrarenal abdominal aortic aneurysm. Qualifiers - * PATIENT BEING DISCHARGED WITH ANY OF THE FOLLOWING DIAGNOSIS: No VTE patient discharged on overlapping Therapy?: No Reason(s) for not prescribing Overlap Therapy:: Not indicated Stroke Pt being discharged on Anti-thrombolytic therapy?: No Reason(s) for not prescribing Anti-thrombolytic therapy:: Not indicated Stroke Pt being discharged on Anti-coagulation therapy?: No Reason(s) for not prescribing Anti-coagulation therapy:: Not indicated Stroke Pt being discharged on Statins?: No Reason(s) for not prescribing Statins therapy:: Not indicated WA Pt being discharged on Aspirin therapy?: No Reason(s) for not prescribing Aspirin therapy:: Not indicated WA Pt being discharged on Statins?: No Reason(s) for not prescribing Statin therapy:: Not indicated [place] Pt discharged ACEI/ARBS?: No Reason(s) for not prescribing ACEI/ARBS:: Not indicated Acute Heart Failure - Is this a Heart Failure Patient?: No e) For LVEF <35%, discharged on Aldosterone antagonist?: Yes
== END 2019-06-19 13:28 | disposition home or self-care (01) ==
LOC: ER 13:13 → INTOOBSV 18:15 → EH 18:15 → 4S 19:57
PROVIDERS: ADMIT Internal Medicine; ATTEND Internal Medicine
DX: S32.401A Unspecified fracture of right acetabulum, initial encounter for closed fracture (principal); S32.591A Other specified fracture of right pubis, initial encounter for closed fracture; W01.0XXA Fall on same level from slipping, tripping and stumbling without subsequent striking against object, initial encounter; Y92.008 Other place in unspecified non-institutional (private) residence as the place of occurrence of the external cause; I71.4 Abdominal aortic aneurysm, without rupture; D41.4 Neoplasm of uncertain behavior of bladder; F17.200 Nicotine dependence, unspecified, uncomplicated; J44.9 Chronic obstructive pulmonary disease, unspecified; M54.9 Dorsalgia, unspecified; Z79.899 Other long term (current) drug therapy
CPT/HCPCS: 96376; 99285; 96374; 96375; 36415 ×4; 87040; 87086; 84439; 82553 ×2; 82140; 82150; 82550 ×2; 83690; 83735; 84100; 84443; 85025 ×4; 85610; 85730; 80053 ×2; 81001; 84484 ×2; 83036; 83880; 73502; 74176; 74177; 97110; 97116; 97163; G0378 ×4; J1644 ×2; J3360; A9270 ×6; J1170 ×4; J7030 ×3; J3490

== ENCOUNTER → 2020-02-18 | Outpatient (CLI) | payer MEDICARE, OTHER ==
--- NOTE | 2020-02-18 12:42 | RADIOLOGY REPORT (SQ) ---
EXAM DESCRIPTION: MRI RT LOWER JOINT WITHOUT IMAGES COMPLETED DATE/TIME: 02/18/2020 9:48 am REASON FOR STUDY: M25.571 PAIN IN RIGHT ANKLE AND JOINTS OF RIGHT FOOT M25.571 PAIN IN RIGHT ANKLE AND JOINTS OF RIGHT FOOT COMPARISON: None. TECHNIQUE: Right ankle images acquired and stored on PACS. Multiplanar images include fat sensitive sequences as T1, fluid sensitive sequences as FST2/STIR, cartilage sensitive sequences as FSPD, and g radient echo sequences. LIMITATIONS: None. FINDINGS: BONE MARROW: No fracture or bone lesion. Mild dorsal talar beaking with edema as well. EFFUSIONS: No subtalar or tibiotalar effusions. No loose bodies. OSSEOUS ARTICULATIONS: No subluxation or dislocation. Mild edema and subchondral cysts about the sub talar articulations. TALAR DOME AND TIBIAL PLAFOND: Normal cartilage. No osteochondral defect. ACHILLES TENDON: Intact without partial or full-thickness tear. No adjacent bursal fluid or edema. TIBIALIS ANTERIOR TENDON: Intact without edema at the 1st MT attachment. TIBIALIS POSTERIOR TENDON: Intact. Insertion on an accessory navicular with slight arthro pathic fea tures of narrowing and spurring and minimal edema. FLEXOR HALLUCIS LONGUS AND FLEXOR DIGITORUM TENDONS: Normal morphology and no tendon sheath fluid. No edema of the os trigonum. PERONEUS LONGUS AND BREVIS TENDON: Normal morphology and no tendon sheath fluid. No subluxation. ATFL, CFL, PTFL: Intact. No thickening or signal alteration. No marjan-ligamentous fluid. DELTOID LIGAMENT: Visualized components intact. TARSAL TUNNEL: No masses. No muscle atrophy. SINUS TARSI: Generalized mild replacement of fat signal may reflect sinus tarsi syndrome. PLANTAR FASCIA: No signal alteration or tear. ADJACENT SOFT TISSUES: Generalized subcutaneous edema about the ankle. Most notable anteriorly track ing along the proximal foot dorsally. No drainable fluid collections. OTHER: No other significant finding. IMPRESSION: 1. 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 2. Accessory ossicle along posterior tibialis insertion with suggestion of potential pathologic featu res of narrowing and spurring and edema. Correlate with symptoms here. 3. Nonspecific soft tissue edema/cellulitis. 4. No fracture. No effusion. Other findings as above. TECHNICAL DOCUMENTATION: JOB ID: [id number] 2010 [employer]- All Rights Reserved Reading location - IP/workstation name: [email or web address]
== END ==
LOC: RAD 08:41
PROVIDERS: ATTEND Internal Medicine
DX: M25.571 Pain in right ankle and joints of right foot (principal)